=== PATIENT | female | born 1990 ===

== ENCOUNTER → 2017-06-28 | Outpatient (CLI) | payer SELFPAY ==
[2017-04-13 17:16] VITALS: BMI 37.3
[~2017-06-28] MED LIST: CEPH250C37 PO; CIPR-214 PO; GUAI600T57 PO; LOR5/325 PO; PREN-127 PO; TAMS0.4C25 PO
--- NOTE | 2017-06-28 10:43 | RADIOLOGY IMAGING REPORT ---
FACILITY: [facility] PATIENT NAME: Sarah Givens : 1990 MR: [id number] V: [id number] EXAM DATE: ORDERING PHYSICIAN: KELLY ALDRICH TECHNOLOGIST: [facility] Patient: Sarah Givens : 1990 Visit/Account:[id number] Date of Sevice: 06/28/2017 KIDNEYS EXAMINATION: Renal ultrasound. History: History of kidney stones, 4.5 months COMPARISON STUDIES: March 02, 2017 FINDINGS: Kidneys: Right kidney- 14.4 x 6.7 x 8 cm Left kidney- 14.4 x 5.1 x 7 cm. There is a left ureteral stent. This is not ideally seen. There ar e echogenic foci within left renal collecting system with acoustic shadowing which may represent calc ramin Uniform and symmetric blood flow in each kidney by Doppler ultrasound. Hydronephrosis: Mild hydronephrosis on the left Bladder: Prevoid volume 57 mL. Post for residual 13 mL.. Ureteral jets were not identified There is a 1.8 cm well-circumscribed hypoechoic nodule in the liver adjacent to the right kidney Abdominal aorta and IVC: Aorta and IVC are patent by Doppler ultrasound. IMPRESSION: There is a mild left hydronephrosis There appears to be a left ureteral stent in place Shadowing foci within the left renal collecting system may represent calculi There is a 1.8 cm well-circumscribed hypoechoic nodule within the liver adjacent to the right kidney. This is nonspecific in nature with differential diagnosis including area of focal fatty sparing or solid mass. Report Dictated By: Stormy Faria MD at 06/28/2017 10:30 AM Report E-Signed By: Stormy Faria MD at 06/28/2017 10:39 AM WSN:[email or web address]
== END ==
LOC: US 01:42
PROVIDERS: ATTEND Urology
DX: N13.30 Unspecified hydronephrosis (principal); R93.2 Abnormal findings on diagnostic imaging of liver and biliary tract; Z96.0 Presence of urogenital implants; N20.0 Calculus of kidney; Z3A.18 18 weeks gestation of pregnancy
CPT/HCPCS: 76705

== ENCOUNTER 2017-07-14 01:35 | Observation (INO) | payer MEDICAID ==
--- NOTE | 2017-07-13 15:27 | HISTORY AND PHYSICAL ---
DATE OF ADMISSION: July 14, 2017 CHIEF COMPLAINT Kidney stone with indwelling left ureteral stent. HISTORY OF PRESENT ILLNESS Patient is a 26-year-old white female who is currently approximately 22 weeks gestational status who was taken to the operating room originally by Dr. Austin on April 13, 2017 for a left distal ureteral stone. A CT scan performed revealed this to be a 1 cm stone just above the left UVJ. She was also noted to have a 2 mm left lower pole stone. She underwent placement of a 6 Sami x 28 cm Percuflex stent at that time. The patient subsequently presented to myself at the urology clinic on June 07, 2017. At that time, she was having significant left flank and pelvic discomfort and wanted the stent removed. I reviewed her films, and had an extensive discussion with the patient concerning this large stone and the fact that she had another stone in the lower pole of the kidney. Given the fact that she was currently , a stone of this size may require anesthesia time to render her stone free, and she would likely need a stent following this extensive ureteroscopic stone manipulation. The patient returned to the clinic approximately two weeks later with a renal ultrasound, which did reveal some mild left hydronephrosis. The films were shown to the patient and discussed in detail. Given the fact that the stent has been in there approximately three months, there is a significant risk of encrustation with malfunction of this stent, and I have recommended she undergo stent exchange. The option of simultaneously doing ureteroscopy with stone fragmentation was also discussed, but given its large size, may preclude a rapid intraoperative treatment, prolonging anesthesia time with possible increased risk to the baby. Other options of a percutaneous nephrostomy tube were also discussed, but this can occlude as well, secondary to encrustations and would need to be likely changed, in addition to the normal ureteroscopic complications of stone treatment. The fact that she was also presented a unique risk, and these were extensively discussed as well, including labor, injury to and loss of fetus. I have spoken to Dr. Tyler of , who has seen the patient in the past, and recommends we keep the patient for observation post procedure for several hours to overnight. The patient has had kidney stones on and off for several years, with her first one dating back to 2012. This past fall, she began to experience intermittent left flank pain, and in January she had a sonogram which revealed mild right hydroureteronephrosis, however, no stone was seen on the ultrasound or KUB. A followup sonogram one month later showed no significant improvement in the left hydronephrosis. Again, the stone was not visualized. PAST MEDICAL HISTORY * Chronic back pain. * Kidney stones. * Bipolar depression. * Irritable bowel syndrome. * Chronic headaches. PAST SURGICAL HISTORY * Tonsillectomy. * Left breast abscess. * C section x 3. CURRENT MEDICATIONS * Tylenol. * medicines. ALLERGIES KEFLEX. FAMILY HISTORY Noncontributory. REVIEW OF SYSTEMS Patient denies shortness of breath, productive cough, fever, chills, gross hematuria, bleeding disorder or change in bowel habits. PHYSICAL EXAMINATION GENERAL: Patient is a well-developed, well-nourished white female in no acute distress. HEENT: Normocephalic, traumatic. CHEST: Clear to auscultation bilaterally. CARDIOVASCULAR EXAM: Regular rate and rhythm. ABDOMINAL EXAM: Soft, gravid female, nontender. EXTREMITY EXAM: Without clubbing, cyanosis or edema.. NEUROLOGICAL EXAM: Nonfocal. IMPRESSION A 26-year-old white female who is 22 weeks OB with a left ureteral stent in place for the past three months for a 1 cm distal left ureteral calculus. PLAN We will perform anesthetic cystoscopy with stent exchange and possible ureteroscopy and stone manipulation as indicated. SHELLEY
[~2017-07-14] VITALS: Ht 167.6 cm; Wt 109.8 kg
[~2017-07-14 01:35] MED LIST changes: +ACET-1966 PO
[2017-07-14] MEDS ORDERED: IOPAMIDOL-200 50 ML VIAL IS ONE (07:28)
[2017-07-14] MEDS ORDERED: MIDAZOLAM 2 MG/2 ML VIAL IVP PRN (08:00)
[2017-07-14] MEDS ORDERED: NORMOSOL R SOLN(*) 1000 ML BAG 1,000 ML IV PRN (08:00)
[2017-07-14] MEDS ORDERED: cefTAZidime 1 GM VIAL IVP ONE (08:00)
[2017-07-14] MEDS ORDERED: LIDOCAINE/SOD BICARB 8.4% SYR ID ONE (08:00)
[2017-07-14] MEDS ORDERED: FAMOTIDINE 20 MG TAB PO ONE (08:00)
[2017-07-14 08:15] VITALS: BP 139/79
[2017-07-14] MEDS ORDERED: ceFAZolin(*) 2GM/D5W 50ML 50 ML IVPB ONE (08:43)
[2017-07-14] MEDS ORDERED: NS 0.9% 3000 ML IRRIGATION BAG IR ONE (08:57)
[2017-07-14] MEDS ORDERED: fentaNYL CITR 100 MCG/2 ML AMP ONE (09:24)
[2017-07-14] MEDS: APAP/HYDROCODONE 325/5 TAB PO PRN ×2 (10:26→14:35)
--- NOTE | 2017-07-14 10:26 | RADIOLOGY IMAGING REPORT ---
FACILITY: [facility] PATIENT NAME: Sarah Givens : 1990 MR: [id number] V: [id number] EXAM DATE: ORDERING PHYSICIAN: KELLY ARANDA TECHNOLOGIST: Location: [facility] [place] Patient: Sarah Givens : 1990 Visit/Account:[id number] Date of Sevice: 07/14/2017 OR fluoroscopy films: Abdomen: History: Left ureteral stent, renal calculi. Comparison: 04/13/2017 Findings: Fluoroscopy and imaging was provided for Dr. Aranda. 0.7 minutes of fluoroscopy time was u tilized. 5 images of the left upper quadrant are archived to PACS which demonstrate left nephrourete ral stent placement. IMPRESSION: Fluoroscopy and imaging provided for Dr. Aranda please see his report for details. Report Dictated By: Agnes Ba MD at 07/14/2017 10:19 AM Report E-Signed By: Agnes Ba MD at 07/14/2017 10:22 AM WSN:[email or web address]
[2017-07-14 10:35] VITALS: BP 119/57; Ht 167.6 cm; Wt 109.8 kg
[2017-07-14] MEDS ORDERED: KETOROLAC 15 MG/ML VIAL IVP ONE (11:15)
--- NOTE | 2017-07-14 15:58 | OPERATIVE REPORT 1 ---
EVENT DATE: July 14, 2017 SURGEON: Ricardo Aranda MD ANESTHESIOLOGIST: Baldo Mujica MD ANESTHESIA: Spinal anesthetic. PREOPERATIVE DIAGNOSIS Left distal ureteral calculus with indwelling left ureteral stent. POSTOPERATIVE DIAGNOSES 1. Left distal ureteral calculus with indwelling left ureteral stent. 2. Left stent encrustation. PROCEDURES PERFORMED 1. Cystoscopy. 2. Left attempted double-J stent removal. 3. Placement of left double-J ureteral stent alongside first stent. ESTIMATED BLOOD LOSS Minimal. INTRAVENOUS FLUIDS Crystalloid. DRAINS A 6-Mosotho x 26 cm Percuflex-Plus stent alongside prior 6 x 28 Percuflex stent on left side. PATHOLOGY None. COMPLICATIONS None. CONDITION The patient was taken to the recovery room in stable condition. STATEMENT OF MEDICAL NECESSITY The patient is a 26-year-old female who is an approximately 22 weeks OB. She originally had a stent placed on April 13, 2017, for a 1 cm left distal ureteral stone. She is now being brought to the operating room for planned stent exchange and/or ureteroscopy. DESCRIPTION OF PROCEDURE PERFORMED After spinal anesthetic was obtained, the patient was placed supine on the operating room table. A small roll was placed on her right side. A lead shield was placed on top of the fetus from the pubic symphysis up to approximately 5 cm above the umbilicus. She was placed in the dorsal lithotomy position and prepped and draped sterilely. Anesthetic cystoscopy was performed. The left ureteral stent was seen emanating from the left ureteral orifice. There was some encrustation on the distal end of the stent which was light cameron in color and irregular surface. At this point, I was concerned of a significant encrustation up along the intraureteral portion of the stent and, therefore, opted to place a guidewire next to the stent up to the renal pelvis. Therefore, a 6-Mosotho access catheter was advanced into the distal ureter next to the stent for approximately 1 cm where resistance was encountered. A Glidewire was then advanced in the lumen of the access catheter and advanced with moderate resistance up the ureter spot. One spot fluoroscopic image was obtained which showed the wire up in the upper pole calyx of the kidney. At this point, the access catheter was advanced up over the wire with a moderate to significant amount of resistance along the course of the advancement. This was done very slowly and deliberately over several minutes. After this was in place, I placed the rigid grasping forceps in the sheath and grasped the distal end of the stent. I brought the end out of the meatus; however, with moderate pressure, it would not easily be removed. The patient was also experiencing some left flank pain with that manipulation. At this point, I thought it would be best just to place another ureteral stent alongside the first stent to get some more passive ureteral dilation and then return in 10 to 14 days for stent removal and ureteroscopy at that time versus primary ureteroscopy at this point which I felt would be a prolonged procedure as she was having significant discomfort up in her kidney with her current spinal level, so it was more than likely she would progress to a general anesthetic if ureteroscopy was performed to have adequate anesthetic control of her pain. Therefore, at this point, an indwelling double-J was advanced back through the urethra into the bladder. The access catheter was backloaded into the cystoscope. The Glidewire was removed, and a Super Stiff wire was placed inside the lumen. The access catheter was removed, and then the Super Stiff wire was used to advance a 6- Mosotho x 26 cm Percuflex-Plus stent. Spot fluoroscopic imaging after placement showed good coiling in the renal pelvis, and she also had good coiling in the bladder by direct vision. Her other stent had been advanced out approximately 3 cm, and it was curled across the bladder. The patient's bladder was drained through the cystoscopic sheath. She was then transferred to the recovery area where she will be admitted to the OB service for observation. PLAN We will plan to have her return to the operating room in 10 days to two weeks for attempted stent removal and exchange and possible ureteroscopy at that time. rick MTDD
== END 2017-07-14 14:28 | disposition home or self-care (01) ==
LOC: OR 01:35 → OB 10:35
PROVIDERS: ADMIT Urology; ATTEND Urology
DX: N20.1 Calculus of ureter (principal)
CPT/HCPCS: 52332; 76000; 81001; 87088; C2617; G0378; J1885; J3010; J0690; Q9966

== ENCOUNTER 2017-07-25 00:13 | Observation (INO) | payer MEDICAID ==
[2017-07-14 10:35] VITALS: Ht 167.6 cm; Wt 113.9 kg
[2017-07-22 11:10] LABS: PLATELET COUNT, AUTOMATED 279 K/uL (150-450)
--- NOTE | 2017-07-22 16:35 | HISTORY AND PHYSICAL ---
DATE OF ADMISSION: July 25, 2017 CHIEF COMPLAINT Kidney stone with encrusted ureteral stent. HISTORY OF PRESENT ILLNESS The patient is a 26-year-old white female who is approximately 27 weeks gestational status who was originally found to have a 1 cm left distal ureteral calculus and underwent stent placement by Dr. Austin on April 13. She was subsequently lost to followup, but presented to the Urology Clinic for evaluation. An ultrasound performed showed continued mild left hydronephrosis which was the reason for stent obstruction. She was taken to the operating room on 14 of July, at which time she was found to have an encrusted left ureteral stent. I was unable to remove the stent at that time secondary to the amount of encrustation. I was eventually able to place a second ureteral stent alongside her first stent using a 6-Nauruan x 26 cm Percuflex Plus stent. She is now being brought to the operating room for planned stent removal and exchange with a possible ureteroscopy. The above findings were discussed extensively with Sarah with the overall treatment plan explained. She was told she has a significantly increased risk of ureteral injury with her current condition and likely has a significant amount of stone burden along the ureter secondary to this encrustation in addition to her large distal ureteral calculi. She has been informed the primary objective is to provide drainage of her left system. However, in keeping a ureteral stent in place, she will likely continue to form encrustation along these given her significant stone history and current status. The other option of a percutaneous nephrostomy tube was also discussed, but she would likely need this exchange before the end of her secondary to likely encrustation as well. The encrustation of her stent would mandate a significant operative time to render her stone-free with ureteroscopic treatment as well as having an integrative approach through a percutaneous nephrostomy tube. She voiced an understanding of the current situation with increased risk to her renal system with possible perforation and even rare avulsion of her ureter. She understands the need for likely having several procedures in the near future, and this also increases a risk for injury from operative exposure to anesthetic, possible radiation, and ureteral manipulation with premature labor. I have spoken to Dr. Burnham of the OB service, and he desires to have the patient admitted postoperatively for monitoring. PAST MEDICAL HISTORY 1. Chronic back pain. 2. Kidney stones. 3. Bipolar depression. 4. Irritable bowel syndrome. 5. Chronic headaches. PAST SURGICAL HISTORY 1. Tonsillectomy. 2. Breast abscess I and D. 3. times three. 4. Kidney stones as per HPI. CURRENT MEDICINES 1. Tylenol. 2. medicines. ALLERGIES KEFLEX. FAMILY HISTORY Noncontributory. REVIEW OF SYSTEMS The patient denies shortness of breath, nausea, vomiting, fever, chills, gross hematuria, vaginal discharge, or diffuse abdominal pain. PHYSICAL EXAMINATION GENERAL: The patient is a well-developed, well-nourished, white female in no acute distress. HEENT: Normocephalic, atraumatic. CHEST: Clear to auscultation bilaterally. CARDIOVASCULAR: Regular rate and rhythm. ABDOMEN: Soft, nontender. Gravid female. EXTREMITIES: Without clubbing, cyanosis, or edema. NEUROLOGIC: Nonfocal. IMPRESSION A 26-year-old white female who is currently 27 weeks with a 1 cm distal left ureteral stone, now with encrusted left ureteral stent. She has recently had a second stent placed alongside the first. PLAN We will perform anesthetic cystoscopy with attempted stent removal and replacement with possible ureteroscopy as indicated. SHELLEY
[2017-07-25] VITALS (7 sets, daily range): BP systolic 106–126; BP diastolic 62–78
[~2017-07-25] VITALS: Ht 167.6 cm; Wt 113.9 kg
[2017-07-25] MEDS ORDERED: IOPAMIDOL-200 50 ML VIAL IS ONE (06:52)
[2017-07-25] MEDS ORDERED: LIDOCAINE/SOD BICARB 8.4% SYR ID ONE (09:20)
[2017-07-25] MEDS ORDERED: MIDAZOLAM 2 MG/2 ML VIAL IVP PRN (09:20)
[2017-07-25] MEDS ORDERED: ceFAZolin(*) 1 GM VIAL 1 GM in NS(*) 0.9% 100 ML ADDVANT BAG 100 ML IVPB ONE (09:20)
[2017-07-25] MEDS ORDERED: NORMOSOL R SOLN(*) 1000 ML BAG 1,000 ML IV PRN (09:20)
[2017-07-25] MEDS ORDERED: FAMOTIDINE 20 MG TAB PO ONE (09:20)
[2017-07-25] MEDS ORDERED: fentaNYL CITR 100 MCG/2 ML AMP ONE ×2 (10:02→11:38)
[2017-07-25] MEDS ORDERED: LIDOCAINE 2% IV 100 MG/5ML SYR ONE (10:08)
[2017-07-25] MEDS ORDERED: PROPOFOL EMUL(*) 10MG/ML 20 ML 20 ML ONE (10:08)
[2017-07-25] MEDS ORDERED: ONDANSETRON 4 MG/2 ML VIAL ONE (10:25)
[2017-07-25] MEDS ORDERED: DEXAMETHASONE SOD 4 MG/ML VIAL ONE (10:25)
[2017-07-25] MEDS ORDERED: SUCCINYLCHOL CHL 200MG/10ML VL ONE (10:30)
[2017-07-25] MEDS ORDERED: KETOROLAC 15 MG/ML VIAL IVP ONE (13:05)
[2017-07-25] MEDS ORDERED: APAP/HYDROCODONE 325/5 TAB PO PRN (13:05)
--- NOTE | 2017-07-25 17:39 | RADIOLOGY IMAGING REPORT ---
FACILITY: [facility] [place] PATIENT NAME: Sarah Givens : 1990 MR: [id number] V: [id number] EXAM DATE: ORDERING PHYSICIAN: KELLY ALDRICH TECHNOLOGIST: Location: [facility] Patient: Sarah Givens : 1990 Visit/Account:[id number] Date of Sevice: 07/25/2017 Exam type: RETROGRADE PYELOGRAM History: History of kidney stones, left-sided stent removal and replacement Comparison: July 14, 2017. Findings: 15 intraoperative C-arm spot views centered over the left upper quadrant of abdomen demonstrate excha nge of a left ureteral stent. A lead shield overlies most of the abdomen. The total fluoroscopy remi e was 15 seconds. The fluoroscopy dose was 15.28 mGray IMPRESSION: 1. As above Report Dictated By: Stormy Faria MD at 07/25/2017 5:33 PM Report E-Signed By: Stormy Faria MD at 07/25/2017 5:35 PM WSN:[email or web address]
--- NOTE | 2017-07-26 16:08 | OPERATIVE REPORT 1 ---
EVENT DATE: July 25, 2017 SURGEON: Ricardo Aranda MD ANESTHESIOLOGIST: Andrew Kline MD ANESTHESIA: General. PREOPERATIVE DIAGNOSES 1. Left distal ureteral calculus. 2. Encrusted left ureteral stent. 3. Second left ureteral stent. POSTOPERATIVE DIAGNOSES 1. Left distal ureteral calculus. 2. Encrusted left ureteral stent. 3. Second left ureteral stent. PROCEDURES PERFORMED 1. Cystoscopy. 2. Left double-J stent removal. 3. Attempted removal of left encrusted double-J ureteral stent. 4. Crushing fragmentation of stones on distal encrusted stent in bladder with Ellik evacuation of stone fragments from bladder. 5. Replacement of second double-J ureteral stent. ESTIMATED BLOOD LOSS Minimal. INTRAVENOUS FLUIDS Crystalloids. DRAINS 26 cm x 6-Saudi Arabian Percuflex Plus ureteral stent on left alongside first encrusted 6-Saudi Arabian x 28 cm ureteral stent. PATHOLOGY Stone encrustations sent for analysis. COMPLICATIONS None. CONDITION The patient was taken to the recovery room awake and in stable condition. STATEMENT OF MEDICAL NECESSITY The patient is a 26-year-old white female who is now at 27 weeks' gestation. She originally was noted to have a 1 cm left distal ureteral calculus and subcutaneously underwent placement of a 6-Saudi Arabian x 28 cm Percuflex Plus stent by Dr. Austin on May 14. The patient was subsequently lost to followup. She presented to the Urology Clinic with flank pain. Ultrasound was performed which showed moderate hydronephrosis. She was subsequently taken to the operating room on July 14, at which time she was found to have a densely encrusted ureteral stent. I was unable to successfully remove this stent completely. I was able to extract approximately one-third of it down into the bladder. At this point, I placed a second stent alongside the first one using a 6-Saudi Arabian x 26 cm Percuflex stent. Since that time, she has been basically asymptomatic except for some mild stent discomfort. These findings were discussed with the patient in great detail. She continued to have her large distal ureteral calculi in place in addition to now having several encrustation stones still on the stent and likely in the ureter next to the stent from prior manipulation. Treatment options of percutaneous nephrostomy tube placement with every four- to six-week changes until she delivers were discussed versus attempt to change her stents from below with also a possible ureteroscopy. Given her large stone burden, it was discussed that she would more than likely need a prolonged operative length procedure to render her stone-free at this point. The fact that she is complicates significant prolonged intervention at this point. She is in the late second trimester when this could possibly be attempted. The patient is now being brought to the operating room for cystoscopy with evaluation of the stent which was recently placed for encrustation with attempted removal of her prior stent and possible ureteroscopy as indicated. DESCRIPTION OF PROCEDURE PERFORMED The patient was brought to the operating room, and after general anesthetic was attained, a radiology shield was placed on the lower pelvis. Anesthetic cystoscopy was performed with the 21-Saudi Arabian sheath and 30-degree lens. Upon entering the bladder, both stents were seen emanating from the left ureteral orifice. The prior encrusted stent was approximately 6 to 8 cm out from the ureteral orifice where its distal end was curled on the opposite side of the bladder. The newer stent was in good position and did not appear to have any significant encrustation. At this point, the distal end of the newer stent was grasped and brought out through the meatus, and a 0.035 Super Stiff wire was advanced in the lumen of the stent where it was guided up to the renal pelvis which was confirmed by spot fluoroscopic imaging. Following this, the 6-Saudi Arabian x 26 cm Percuflex stent was removed. The Super Stiff wire was secured to the drapes. At this point, the shield was moved cephalad, and another spot image was obtained. This time, the mid ureter could be seen, and the encrusted stent could be visualized in approximately the mid ureter with the curl still in a semicircular position. Gentle traction was used on the stent in the bladder with the grasping forceps; however, no significant movement could be detected inside the bladder. At this point, a 6-Saudi Arabian access catheter was advanced next to the wire and encrusted stent; however, it appeared to encounter the large stone in the distal ureter and could not be advanced further after several minutes of manipulation. Dilute lubricating jelly was injected into the lumen of the access catheter, and manipulation continued; however, I was unsuccessful in advancing the access catheter past the distal stone. Therefore , at this point, the Super Stiff wire was backloaded into the cystoscope, and then this was used to place a new 6-Saudi Arabian x 26 cm Percuflex Plus stent. The wire was removed. She was noted to have good curling in the renal pelvis by spot fluoroscopic imaging and good curling in the bladder by direct vision. At this point, the prior encrusted stent was inspected. There was a significant amount on the very distal portion. The grasping forceps were used to crush and remove this stone encrustation along the portion of the stent that was in the bladder. An Ellik evacuator was then used to remove the encrustation and stone fragments from the bladder. The patient's bladder was then drained through the cystoscopic sheath. She was awakened in the operating room and taken to the recovery area in stable condition. PLAN The plan is to admit the patient to the OB service under the direction of Dr. Burnham for monitoring. We will see her in the Urology Clinic in one to two days to discuss further treatment and followup. SHELLEY
== END 2017-07-25 15:41 | disposition home or self-care (01) ==
LOC: OR 00:13 → OB 12:00
PROVIDERS: ADMIT Urology; ATTEND Urology
DX: N20.1 Calculus of ureter (principal)
CPT/HCPCS: 36415; 52332; 74420; 81001; 85025; 87088; 88300; C1769; C1894; C2617; G0378; J0330; J0690; J1100; J1885; J2001; J2405; J2704; J3010; J7050; 82310; 82374; 82435; 82565; 82947; 84132; 84295; 84520; Q9966

== ENCOUNTER → 2017-08-02 | Outpatient (CLI) | payer MEDICAID ==
[2017-07-14 10:35] VITALS: BMI 39.1
--- NOTE | 2017-08-02 11:24 | RADIOLOGY IMAGING REPORT ---
FACILITY: [facility] [place] PATIENT NAME: Sarah Givens : 1990 MR: [id number] V: [id number] EXAM DATE: ORDERING PHYSICIAN: KELLY ALDRICH TECHNOLOGIST: [facility] Patient: Sarah Givens : 1990 Visit/Account:[id number] Date of Sevice: 08/02/2017 EXAMINATION: Renal ultrasound 08/02/2017 9:30 AM HISTORY: patient. Left ureteral stone with stent.. COMPARISON STUDIES: 06/28/2017 FINDINGS: Kidneys: Right kidney- 14.1 x 5.1 x 7.0 cm, normal parenchymal thickness and echogenicity. Left kidney- 13.3 x 5.4 x 5.3 cm, normal parenchymal thickness and echogenicity. 1.4 cm cyst in the parapelvic area in the mid kidney. Ureteral stent is not well-defined sonographically. No significa nt hydronephrosis. Uniform and symmetric blood flow in each kidney by Doppler ultrasound. Hydronephrosis: none Bladder: At least one potentially to distal stent tips are identified in the bladder. Abdominal aorta and IVC: Patent by Doppler ultrasound IMPRESSION: 1. Unremarkable ultrasound appearance of the kidneys apart from a small cortical cyst on the left. No hydronephrosis. 2. Proximal stent is not well-defined in the left kidney by ultrasound. There are 1 or 2 stent tips identified in the bladder. Fluoroscopic imaging 07/25/2017 only demonstrates one stent over the kidne y on the left, although the bladder was not imaged to limit fluoroscopic exposure of the gestation. Report Dictated By: Montana Herrera MD at 08/02/2017 11:13 AM Report E-Signed By: Montana Herrera MD at 08/02/2017 11:18 AM WSN:[email or web address]
== END ==
LOC: US 01:01
PROVIDERS: ATTEND Urology
DX: N20.2 Calculus of kidney with calculus of ureter (principal); Z87.442 Personal history of urinary calculi
CPT/HCPCS: 76705

== ENCOUNTER → 2017-08-24 | Outpatient (CLI) | payer MEDICAID ==
[2017-07-14 10:35] VITALS: BMI 39.1
[~2017-08-24] MED LIST changes: +ESCI20TA38 PO
--- NOTE | 2017-08-24 17:05 | RADIOLOGY IMAGING REPORT ---
FACILITY: [facility] [place] PATIENT NAME: Sarah Givens : 1990 MR: [id number] V: [id number] EXAM DATE: ORDERING PHYSICIAN: KELLY ALDRICH TECHNOLOGIST: Location: [facility] Patient: Sarah Givens : 1990 Visit/Account:[id number] Date of Sevice: 08/24/2017 KIDNEYS EXAMINATION: Renal ultrasound. History: Left ureteral stones COMPARISON STUDIES: August 02, 2017 FINDINGS: Kidneys: Right kidney- 13.1 x 5.8 x 5.5 cm Left kidney- 14.7 x 6 x 6.1 cm Uniform and symmetric blood flow in each kidney by Doppler ultrasound. Hydronephrosis: There is a moderate hydronephrosis on the left. There is a left ureteral stent in pl rishi Incompletely imaged is a fetus in cephalic presentation Bladder: Empty Abdominal aorta and IVC: Aorta and IVC are patent by Doppler ultrasound. IMPRESSION: Moderate left hydronephrosis Left ureteral stent Incidentally noted is a fetus in cephalic presentation Report Dictated By: Stormy Faria MD at 08/24/2017 3:58 PM Report E-Signed By: Stormy Faria MD at 08/24/2017 4:02 PM WSN:[email or web address]
== END ==
LOC: US 01:05
PROVIDERS: ATTEND Urology
DX: N13.30 Unspecified hydronephrosis (principal); Z96.0 Presence of urogenital implants; Z3A.00 Weeks of gestation of pregnancy not specified
CPT/HCPCS: 76705

== ENCOUNTER 2017-08-25 01:24 | Observation (INO) | payer MEDICAID ==
--- NOTE | 2017-08-24 18:45 | HISTORY AND PHYSICAL ---
DATE OF ADMISSION: August 25, 2017 CHIEF COMPLAINT Left malfunctioning ureteral stent with encrustation and ureteral and kidney stones. HISTORY OF PRESENT ILLNESS The patient is a 26-year-old white female who at this point is approximately 31 weeks of gestation status. She had been found to have a 1 cm left distal ureteral calculus and underwent stent placement in March by Dr. Austin. She was lost to followup. She was seen in the Urology Clinic where she was having flank pain. Ultrasound revealed hydronephrosis on the left side. She was taken to the operating room on the 14 of July and was found to have an extremely encrusted left stent. I was unable to remove the stent at that time after significant efforts. However, I was able to place a second ureteral stent alongside the first stent using a 6-Iranian x 26 cm Percuflex Plus stent. She was returned to the operating room on the 25 of July. At that time, again, the stent was grasped, but would not be removed. The second stent did have some mild encrustation noted already, and it was moderately difficult to exchange this stent out at that time, but I was eventually able to replace it again with a 6-Iranian x 26 cm Percuflex Plus stent. In followup, these findings were again extensively discussed. She was seen in the office on the 02 of August. At that time, she had no significant pain. A renal ultrasound showed no hydronephrosis at that time. Options were discussed as far as proceeding with intervention with possible ureteroscopy and our timing of ureteral stent exchange versus a percutaneous nephrostomy tube. Given her rapid encrustation of these stents, it was felt that she would need her percutaneous nephrostomy tube changed at least twice before delivery. The plan was to have her return to the clinic in approximately three weeks to check another renal ultrasound and proceed with stent exchange at that time if she developed any symptoms or changes. She was seen in the clinic on the 24 of August. She reported having development of mild flank pain with left lower quadrant discomfort. A renal ultrasound was performed, and at this time, a mild -to-moderate hydronephrosis on the left was noted by my interpretation of these films. They were discussed with the patient. She was informed that likely she has encrustation of this second stent. It is no longer draining properly, and this would need to be removed and replaced. Again, the difficulties of exchanging an encrusted stent were discussed. This becomes more problematic given her late stage of when positioning, and tortuosity of the ureter would likely increase. Likely, she has significant encrustation along her prior stent and probably some mild intraluminal encrustation along the stent which has been in there approximately four weeks. She is now being brought to the operating room for planned cystoscopy, stent removal and replacement with possible ureteroscopy. She also understands the need for percutaneous nephrostomy tube placement if we are unsuccessful and the increased risk for ureteral injury given her current situation. Again, distress and compromise with possible labor were explained. I have discussed the case with Dr. Newman of Obstetrics, who is in approval of the plan and has agreed to monitor her post procedure. PAST MEDICAL HISTORY 1. Chronic back pain. 2. Kidney stones. 3. Bipolar depression. 4. Irritable bowel syndrome. 5. Chronic headaches. PAST SURGICAL HISTORY 1. Tonsillectomy. 2. Breast abscess incision and drainage. 3. times three. 4. Kidney stones as per HPI. CURRENT MEDICATIONS 1. Tylenol. 2. medicines. ALLERGIES KEFLEX. FAMILY HISTORY Noncontributory. REVIEW OF SYSTEMS The patient denies chest pain, shortness of breath, productive cough, fever, chills, gross hematuria, bleeding disorder, or vaginal bleeding and/or discharge. PHYSICAL EXAMINATION GENERAL: The patient is a well-developed, gravid female in no acute distress. HEENT: Normocephalic, atraumatic. CHEST: Clear to auscultation bilaterally. CARDIOVASCULAR: Regular rate and rhythm. ABDOMEN: Soft, nontender. No masses are palpated. GENITOURINARY: Deferred to the OR. EXTREMITIES: Without clubbing, cyanosis, or edema. NEUROLOGIC: Nonfocal. IMPRESSION A 26-year-old white female who is now approximately 31 weeks of gestation with a 1 cm distal left stone with an encrusted ureteral stent, now with a likely malfunctioning second stent alongside the first. PLAN We will perform anesthetic cystoscopy, stent removal, and/or exchange with possible ureteroscopy. The patient understands risks of failure to remove and/ or replace with possible need for percutaneous nephrostomy tube placement. She also has been informed about risk with possible premature labor. She also understands she is at increased risk for ureteral injury and will likely need several procedures post delivery to render her stone-free and remove these encrusted stents. SHELLEY
[~2017-08-25] VITALS: Ht 167.6 cm; Wt 113.4 kg
[2017-08-25] MEDS ORDERED: LIDOCAINE/SOD BICARB 8.4% SYR ID ONE (06:05)
[2017-08-25 08:58] LABS: PLATELET COUNT, AUTOMATED 275 K/uL (150-450)
[2017-08-25] MEDS ORDERED: FAMOTIDINE 20 MG TAB PO ONE (09:30)
[2017-08-25] MEDS ORDERED: NORMOSOL R SOLN(*) 1000 ML BAG 1,000 ML IV PRN (09:30)
[2017-08-25] MEDS ORDERED: ceFAZolin(*) 1 GM VIAL 1 GM in NS(*) 0.9% 100 ML ADDVANT BAG 100 ML IVPB ONE (09:30)
[2017-08-25] MEDS ORDERED: MIDAZOLAM 2 MG/2 ML VIAL IVP PRN (09:30)
[2017-08-25] MEDS ORDERED: fentaNYL CITR 100 MCG/2 ML AMP ONE ×2 (09:37→11:19)
[2017-08-25] MEDS ORDERED: LIDOCAINE 2% IV 100 MG/5ML SYR ONE (09:41)
[2017-08-25] MEDS ORDERED: PROPOFOL EMUL(*) 10MG/ML 20 ML 20 ML ONE (09:42)
[2017-08-25 09:45] VITALS: BP 113/69
[2017-08-25] MEDS ORDERED: DEXAMETHASONE SOD 4 MG/ML VIAL ONE (10:31)
[2017-08-25] MEDS ORDERED: ONDANSETRON 4 MG/2 ML VIAL ONE (10:32)
[2017-08-25] MEDS ORDERED: SUCCINYLCHOL CHL 100MG/5ML SYR IVP ONE (10:45)
[2017-08-25] MEDS ORDERED: NS 0.9% 3000 ML IRRIGATION BAG IR ONE (10:56)
[2017-08-25] MEDS ORDERED: BELLADONNA ALK/OPIUM 60MG SUPP PR ONE (10:58)
--- NOTE | 2017-08-25 14:03 | RADIOLOGY IMAGING REPORT ---
FACILITY: [facility] PATIENT NAME: Sarah Givens : 1990 MR: [id number] V: [id number] EXAM DATE: ORDERING PHYSICIAN: KELLY ALDRICH TECHNOLOGIST: Location: [facility] Patient: Sarah Givens : 1990 Visit/Account:[id number] Date of Sevice: 08/25/2017 Exam type: C-ARM FLUORO 1 HR History: URETERAL STENT EXCHANGE Comparison: July 25, 2017. Findings: 17 intraoperative spot views over the abdomen were submitted demonstrating the placement of a left ur eteral stent. The total fluoroscopy time was 15 seconds. The fluoroscopy dose was 27.870 mGray IMPRESSION: 1. As above Report Dictated By: Stormy Faria MD at 08/25/2017 1:10 PM Report E-Signed By: Stormy Faria MD at 08/25/2017 1:58 PM WSN:[id number]
[2017-08-25 15:49] VITALS: BP 121/59; Ht 167.6 cm; Wt 113.4 kg
--- NOTE | 2017-08-25 17:39 | OPERATIVE REPORT 1 ---
EVENT DATE: August 25, 2017 SURGEON: Ricardo Aranda MD ANESTHESIOLOGIST: Andrew Kline MD ANESTHESIA: General anesthetic. PREOPERATIVE DIAGNOSES 1. Left distal ureteral calculus. 2. Encrusted left ureteral stent. 3. Malfunctioning left ureteral stent with likely encrustation. 4. Kidney stones. POSTOPERATIVE DIAGNOSES 1. Left distal ureteral calculus. 2. Encrusted left ureteral stent. 3. Malfunctioning left ureteral stent with likely encrustation. 4. Kidney stones. PROCEDURES PERFORMED 1. Cystoscopy. 2. Removal of left double-J ureteral stent. 3. Replacement of left double-J ureteral stent. ESTIMATED BLOOD LOSS Minimal. INTRAVENOUS FLUIDS Crystalloid. DRAINS A 6-Swedish x 26 cm Percuflex Plus stent on left alongside encrusted 6-Swedish x 28 cm Percuflex Plus stent. COMPLICATIONS None. CONDITION The patient was taken to the recovery room awake and in stable condition. STATEMENT OF MEDICAL NECESSITY The patient is a 26-year-old white female who originally was diagnosed with a 1 cm left distal stone. She had a ureteral stent placed by Dr. Austin and was lost to followup. When seen in the Urology Clinic, she was having flank pain. At that time, ultrasound revealed hydronephrosis, so she was taken to the operating room and found to have an encrusted left ureteral stent. At that time , I was unable to remove the stent after several attempts and placed an internal stent next to this chronically encrusted stent. Four weeks ago, she was brought back to the operating room for a second attempt to remove the prior stent with a possible ureteroscopy; however, after several minutes of manipulation, it would not be easily removed. Therefore, the 6-Swedish x 26 cm stent was placed alongside this stent. Approximately a week after the procedure , the patient was doing well. An ultrasound performed showed no hydronephrosis. She returned to the clinic yesterday and was experiencing mild left flank pain. Ultrasound revealed hydronephrosis on this side and most consistent with malfunctioning of her new stent with likely early encrustation. She is now being brought to the operating room for planned stent removal and possible ureteroscopy as indicated. Again, we had an extensive discussion where current risks of ureteral injury and failure to remove stent with need for possible percutaneous nephrostomy tube placement were explained. DESCRIPTION OF OPERATION PERFORMED The patient was brought to the operating room. After general anesthetic was attained, she was placed in the dorsal lithotomy position. A radiation shield was placed on her lower abdomen to shield the infant. A small roll was placed under side to roll her slightly to the left. At this point, anesthetic cystoscopy was performed. The stents were seen emanating from the left ureteral orifice. There was a significant amount of surrounding reactive bullous edema. The newer stent was noted to have encrustation on its very distal end. The original stent was also noted to have re-encrusted from the last attempt to remove this. At this point, it was obvious that the internal lumen of the stent had been completely encrusted given its appearance. Therefore, a 6-Swedish opening access catheter was advanced in the distal ureter , and a dilute mixture of lidocaine jelly and contrast was used to inject in a retrograde manner along the ureter. This access catheter was then used to place a 0.035 Glidewire, which was advanced to the renal pelvis with spot fluoroscopic imaging at the kidney. The access catheter was then advanced up over this Glidewire to the renal pelvis. The access catheter was kept in place , and the Glidewire was removed. A Super Stiff wire was then advanced into the lumen of the access catheter, and the access catheter was removed. This Super Stiff wire was secured to the drapes as a safety wire. The newer of the two stents was grasped at its distal end and brought out through the meatus using gentle traction. It was removed intact. There was a mild amount of resistance during the removal, but it did not appear to be significant in severity. After this was removed, the other stent was grasped at the meatus with the rigid grasping forceps. However, after multiple attempts, it would not advance. Therefore, Super Stiff wire was then backloaded into the cystoscope, and then this was used to place a 6-Swedish x 26 cm Percuflex Plus stent. It was advanced over the wire easily up into the renal pelvis. The wire was removed. Spot imaging showed good curling in the renal pelvis, and there was good curling in the bladder by direct vision. The patient's bladder was drained through the cystoscopic sheath. A B and O suppository was given at the conclusion of the case. She was awakened in the operating room and taken to the recovery area in stable condition. PLAN The plan will be to have Dr. Newman of Obstetrics monitor the patient and the fetus for the next several hours, and she will be discharged after she is cleared by his service. We will plan to see her in the Urologic Clinic in approximately two weeks to discuss these results and to follow treatment. She will likely need at least one more stent placement over the next three weeks, and hopefully that would be able to bridge her to her delivery where definitive treatment can be entertained. SHELLEY
== END 2017-08-25 15:08 | disposition home or self-care (01) ==
LOC: OR 01:24 → OB 13:05
PROVIDERS: ADMIT Urology; ATTEND Urology
DX: N20.2 Calculus of kidney with calculus of ureter (principal); T83.018A Breakdown (mechanical) of other urinary catheter, initial encounter
CPT/HCPCS: 36415; 52332; 76000; 81001; 85025; 87088; C1769; C1894; C2617; G0378; J0330; J0690; J1100; J2001; J2405; J2704; J3010; J7050; 82040; 82247; 82310; 82374; 82435; 82565; 82947; 84075; 84132; 84155; 84295; 84450; 84460; 84520

== ENCOUNTER 2017-09-02 12:59 | Observation (INO) | payer MEDICAID ==
[~2017-09-02] VITALS: Ht 167.6 cm; Wt 115.7 kg
[2017-09-02] MEDS ORDERED: APAP/HYDROCODONE 325/7.5 TAB PO ONE (14:05)
--- NOTE | 2017-09-02 14:19 | History & Physical ---
History of Present Illness Age of Patient: 26 : 5 Para or TPAL: 4 Estimated Gestational Age: 32 Chief Complaint Left flank pain History of Present Illness The patient is a 26-year-old white female who at this point is approximately 32 weeks of gestation status. She had been found to have a 1 cm left distal ureteral calculus and underwent stent placement in March by Dr. Austin. She was lost to followup. She was seen in the Urology Clinic where she was having flank pain. Ultrasound revealed hydronephrosis on the left side. She was taken to the operating room by Dr Aranda on the 14 of July and was found to have an extremely encrusted left stent. This was attempted to be removed but was unsuccessful and another stent was placed along side of it. This improved her pain and u/s imaging then showed resolution of the hydronephrosis. It has since returned and Manoj just replaced one stent again last week. Pt reports pain has significantly increased over the last 2-3 days. She has been using Lortab 5/325 to control her pain but this is not sufficient currently. History Allergies: Coded Allergies: lamotrigine (Verified Allergy, Intermediate, RASH/HIVES, 07/22/17) cephalexin (Verified Allergy, Mild, RASH , 07/14/17) Family History: FH: PR (myocardial infarction) MOTHER, FH: bipolar disorder MOTHER, FH: diabetes mellitus FATHER FH: heart disease MOTHER, Kidney stone FATHER Substance abuse MOTHER, Med Rec Home Meds Reported Medications Escitalopram Oxalate (LEXAPRO) 20 Mg Tablet, 10 MG PO QDAY, TAB 08/24/17 Hydrocodone Bit/Acetaminophen (HYDROCODON-ACETAMINOPHEN 5-325) 1 Each Tablet, 1- 2 EACH PO DAILY Y for PAIN, TAB 07/22/17 Acetaminophen (TYLENOL) 325 Mg Tablet, 650 MG PO PRN Y for PAIN, TAB 07/07/17 Vits W-Ca,Fe,Fa(<1MG) ( VITAMINS) 1 Each Tablet, 1 EACH PO DAILY, TAB 04/13/17 Review of Systems All Systems Reviewed/Normal: Yes, Except as Noted Genitourinary: Other (denies bleeding) Exam General Exam General Apperance: Alert/Awake/No Acute Distress Neuro: No Gross deficits Cardiovascular: Regular Rate and Rhythm Respiratory: No Respiratory Distress, Clear to Auscultation Abdomen: Soft, Non-Tender, Non-Distended, Gravid - Non-Tender Psychological: Alert & Oriented X3, Appropriate Mood & Affect Cervical Dialation: 0 Cervical Effacement (%): 0 Cervical Consistency: Firm Cervical Position: Posterior Fetus Heart Tone Variabilty: Moderate FHT Accelerations: 15X15 FHT Category: I Medical Decision Making VTE Prophylasis: Adult Deep Vein Thrombosis/Pulmonary: No Pharmacological Contraindicati: Pt at Low Risk for VTE Mechanical Contraindications: Pt at Low Risk for VTE Assessment and Plan Problems: (1) Previous section (2) Threatened labor, antepartum Assessment & Plan: will check fFN and her cervical exam is reassuring for PTL risk. (3) Kidney stone on left side Status: Acute Assessment & Plan: Will check renal u/s to determine if sudden worsening of her hydro or any other complication. Screen for UTI and pyelo although unlikely. Increase to Lortab 7.5 for pain. SHEILA LEZAMA MD Sep 02, 2017 14:19
[2017-09-02] MEDS ORDERED: HYDR-389 PO (14:21)
[2017-09-02 14:37] VITALS: Ht 167.6 cm; Wt 115.7 kg
[2017-09-02 15:20] LABS: PLATELET COUNT, AUTOMATED 237 K/uL (150-450)
--- NOTE | 2017-09-02 15:40 | RADIOLOGY IMAGING REPORT ---
FACILITY: [facility] [place] PATIENT NAME: Sarah Givens : 1990 MR: [id number] V: [id number] EXAM DATE: ORDERING PHYSICIAN: SHEILA LEZAMA TECHNOLOGIST: [place] [facility] [place] Patient: Sarah Givens : 1990 Visit/Account:[id number] Date of Sevice: 09/02/2017 KIDNEYS EXAMINATION: Renal ultrasound. History: Left back pain since stent placement on 08/25/2017 COMPARISON STUDIES: August 24, 2017 FINDINGS: Kidneys: Right kidney- 14.2 x 4.9 x 5 cm Left kidney- 14.5 x 5.9 x 6.1 cm Uniform and symmetric blood flow in each kidney by Doppler ultrasound. Hydronephrosis: There is a left ureteral stent in place.. There is moderate left hydronephrosis that appears similar to the prior study. Bladder: The bladder was not distended with urine although the distal portion the stent appear to be within the bladder Abdominal aorta and IVC: Aorta and IVC are patent by Doppler ultrasound. IMPRESSION: Left ureteral stent Moderate left hydronephrosis similar to the prior study from August 24, 2017 Report Dictated By: Stormy Faria MD at 09/02/2017 3:34 PM Report E-Signed By: Stormy Faria MD at 09/02/2017 3:36 PM WSN:[id number]
== END 2017-09-02 17:00 | disposition home or self-care (01) ==
LOC: OB 12:59
PROVIDERS: ADMIT Obstetrics & Gynecology; ATTEND Obstetrics & Gynecology
DX: O47.03 False labor before 37 completed weeks of gestation, third trimester (principal); O26.893 Other specified pregnancy related conditions, third trimester; M54.9 Dorsalgia, unspecified
CPT/HCPCS: 36415; 59025; 76705; 81001; 82731; 85025; 87088; G0378; G0379; 82040; 82247; 82310; 82374; 82435; 82565; 82947; 84075; 84132; 84155; 84295; 84450; 84460; 84520

== ENCOUNTER 2017-10-04 05:12 | Inpatient (IN) | payer MEDICAID ==
[2017-10-04] VITALS (22 sets, daily range): BP systolic 94–133; BP diastolic 47–85; Ht 167.6 cm; Wt 117.9 kg
[~2017-10-04] VITALS: Ht 167.6 cm; Wt 117.9 kg
[~2017-10-04 05:12] MED LIST changes: +HYDR-389 PO
[2017-10-04] MEDS ORDERED: ceFAZolin(*) 2GM/D5W 50ML 50 ML IVPB ONE (05:14)
[2017-10-04] MEDS ORDERED: cefOXitin/DEX(*) 2GM/50ML PREM 50 ML IVPB ONE (05:15)
[2017-10-04] MEDS ORDERED: METOCLOPRAMIDE 10 MG/2 ML SDV IVP ONE (05:15)
[2017-10-04] MEDS ORDERED: FAMOTIDINE 20 MG/50 ML PREMIX IVPB ONE (05:15)
[2017-10-04] MEDS ORDERED: CITRIC ACID/SOD CITRATE 30 ML PO ONE (05:15)
[2017-10-04] MEDS ORDERED: LR(*) 1000 ML BAG 2,000 ML ONE (05:22)
[2017-10-04] MEDS: LR(*) 1000 ML BAG 1,000 ML IV SCH ×2 (06:04→20:54)
[2017-10-04 06:09] LABS: PLATELET COUNT, AUTOMATED 241 K/uL (150-450)
[2017-10-04] MEDS ORDERED: ePHEDrine 25 MG/5 ML DISP.SYR IVP ONE (06:25)
[2017-10-04] MEDS ORDERED: MORPHINE PF 5 MG/10 ML AMP ONE (06:25)
[2017-10-04] MEDS ORDERED: fentaNYL CITR 100 MCG/2 ML AMP ONE (06:25)
[2017-10-04] MEDS ORDERED: OXYTOCIN 10 UNIT/ML SDV ONE (06:25)
[2017-10-04] MEDS ORDERED: NS 0.9% 20 ML SDV 20 ML ONE (06:25)
[2017-10-04] MEDS ORDERED: ONDANSETRON 4 MG/2 ML VIAL IVP ONE (06:25)
[2017-10-04] MEDS ORDERED: NEXT CASE 1 EA MISC IV ONE ×2 (06:29→06:48)
[2017-10-04] MEDS ORDERED: KETOROLAC 30 MG/ML VIAL ONE (06:50)
--- NOTE | 2017-10-04 07:02 | History & Physical ---
History of Present Illness Age of Patient: 27 : 5 Para or TPAL: 4 EDC per U/S: October 26, 2017 Estimated Gestational Age: 37.0 Chief Complaint Repeat History of Present Illness Pt presenting for scheduled repeat for medical reasons. She is 37.0 weeks today and has a history of problematic nephrolithiasis dating back to first trimester requiring stent placement. This stent has been changed, attempted change, crusted and recurrent pain requiring narcotic medication. She is currently managed by Dr. Aranda who has replaced a stent over the prior stent and has been looking at needing to do a percutaneous stent placement. Discussion with OBX developed plan for delivery at 37 weeks with steroids having been given 09/19/17 and 09/20/17. GBS negative. Past Medical, Surgical, Family and Obstetric Histories reviewed. Please see ACOG chart. History Allergies: Coded Allergies: lamotrigine (Verified Allergy, Intermediate, RASH/HIVES, 07/22/17) cephalexin (Verified Allergy, Mild, RASH , 07/14/17) Family History: FH: HI (myocardial infarction) MOTHER, FH: bipolar disorder MOTHER, FH: diabetes mellitus FATHER FH: heart disease MOTHER, Kidney stone FATHER Substance abuse MOTHER, Med Rec Home Meds Active Scripts Acetaminophen/Hydrocodone (HYDROCODON-ACETAMINOPH 7.5-325) 1 Each Ea, 1 EACH PO Q6H Y for PAIN, #30 EA 0 Refills Prov:SHEILA LEZAMA MD 09/02/17 Reported Medications Escitalopram Oxalate (LEXAPRO) 20 Mg Tablet, 10 MG PO QDAY, TAB 08/24/17 Acetaminophen (TYLENOL) 325 Mg Tablet, 650 MG PO PRN Y for PAIN, TAB 07/07/17 Vits W-Ca,Fe,Fa(<1MG) ( VITAMINS) 1 Each Tablet, 1 EACH PO DAILY, TAB 04/13/17 Review of Systems All Systems Reviewed/Normal: Yes, Except as Noted Other as per HPI Exam General Exam General Apperance: Alert/Awake/No Acute Distress Neuro: No Gross deficits Cardiovascular: Regular Rate and Rhythm Respiratory: No Respiratory Distress, Clear to Auscultation Abdomen: Soft, Non-Tender, Non-Distended, Gravid - Tender Integumentary: Skin Intact without Lesions or Rash Psychological: Alert & Oriented X3, Appropriate Mood & Affect Fetus Feeling Movement?: Yes Heart Tone Variabilty: Moderate FHT Accelerations: 15X15 FHT Category: I Medical Decision Making Data Points Result Diagram: 10/04/17 0553 VTE Prophylasis: Adult Deep Vein Thrombosis/Pulmonary: No Pharmacological Contraindicati: Pt at Low Risk for VTE Mechanical Contraindications: Pt at Low Risk for VTE 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 Risks of scarring, complications reviewed. Will consult Manoj. SHEILA LEZAMA MD Oct 04, 2017 07:02
[2017-10-04] MEDS ORDERED: OXYTOCIN 30 UNIT/D5LR 500 ML 500 ML IV PRN (08:40)
[2017-10-04] MEDS ORDERED: ZOLPIDEM TARTRATE 5 MG TAB PO PRN (08:40)
[2017-10-04] MEDS ORDERED: ACETAMINOPHEN 325 MG TAB PO PRN (08:40)
[2017-10-04] MEDS ORDERED: LANOLIN OINT 7 GM TUBE TP PRN (08:40)
[2017-10-04] MEDS ORDERED: SIMETHICONE 80 MG CHEW CHEW PRN (08:40)
[2017-10-04] MEDS ORDERED: PROMETHAZINE 25 MG/ML 1 ML AMP IVP PRN (08:40)
[2017-10-04] MEDS ORDERED: ONDANSETRON 4 MG/2 ML VIAL IVP PRN (08:40)
--- NOTE | 2017-10-04 08:51 | Post Operative Note ---
Operative Note - [employer] Operative Day Date: Oct 04, 2017 Time: 08:42 Physicians Surgeon: Bradley Photocopying Machine Operator: Shlomo Anesthesia: Spinal Diagnosis Pre-Op Diagnosis: Previous pyelectasis 37 week Post-Op Diagnosis: same pelvic adhesions Procedure Findings: dense pelvic adhesions to anterior uterus and abdominal wall Procedure(s): RLTCS Adhesiolysis Specimen Removed:(Maybe N/A): dict #[id number] Complications: none Fluids Fluids: 1000 ml Estimated Blood Loss: 500 ml Dictated Date OP Note Dictated: Oct 04, 2017 Time OP Note Dictated: 08:44 Copies to: SHEILA LEZAMA MD, TRAVIS MD Oct 04, 2017 08:51
--- NOTE | 2017-10-04 08:59 | Anesthesia OB Pre-Anes Eval ---
History of Present Illness Anesthesia Start Date: Oct 04, 2017 Anesthesia Start Time: 06:45 OB Anesthesia Diagnosis: repeat c/section Current Complication: obesity EDC: October 25, 2017 : 5 Para: 4 Vital Signs: Vital Signs 10/04/17 06:50 Temp 98.1 Pulse 79 Resp 14 B/P (MAP) 133/75 (94) Pulse Ox 93 O2 Delivery Room Air Pain Ratin Result Diagram: 10/04/17 0553 Height (Inches): 66.00 Weight (Pounds): 260 BMI Calculated: 41.96 Past Medical History Medical History: obesity, other (smoker 2p/d) Surgical History: other (stents for stones) Previous Anesthesia: spinal Attended Childbirth Classes?: No Hx Anesthesia Reactions: No Hx Family Anesthesia Reaction: No Home Meds Active Scripts Acetaminophen/Hydrocodone (HYDROCODON-ACETAMINOPH 7.5-325) 1 Each Ea, 1 EACH PO Q6H Y for PAIN, #30 EA 0 Refills Prov:SHEILA LEZAMA MD 09/02/17 Reported Medications Acetaminophen (TYLENOL) 325 Mg Tablet, 650 MG PO PRN Y for PAIN, TAB 07/07/17 Vits W-Ca,Fe,Fa(<1MG) ( VITAMINS) 1 Each Tablet, 1 EACH PO DAILY, TAB 04/13/17 Discontinued Reported Medications Escitalopram Oxalate (LEXAPRO) 20 Mg Tablet, 10 MG PO QDAY, TAB 08/24/17 Allergies: Coded Allergies: lamotrigine (Verified Allergy, Intermediate, RASH/HIVES, 07/22/17) cephalexin (Verified Allergy, Mild, RASH , 07/14/17) Anesthesia OB ROS Neurological: other (bipolar) ENT: Tongue ring (out) Pulmonary: smoker (pks/day/yrs) (2) Airway Class: lll Cardiovascular ROS: No edema, No arrhythmia, No other GI ROS: NPO Last Solids Date: Oct 03, 2017 Last Solids Time: 23:30 ROS: Other (kidney stones) Endocrine ROS: other (m.obesdity) Musculoskeletal ROS: low back pain ASA Classification: 3 Assessment and Plan Anesthesia Plan: SAB Anesthesia Stop Day: Oct 04, 2017 Anesthesia Stop Time: 08:50 MICHAELLE JONES CRNA Oct 04, 2017 08:59
[2017-10-04] MEDS: DOCUSATE CALCIUM 240 MG CAP PO SCH ×2 (09:00→20:05)
[2017-10-04] MEDS: FAMOTIDINE 20 MG TAB PO SCH ×2 (09:00→20:05)
[2017-10-04] MEDS: KETOROLAC 30 MG/ML VIAL IVP SCH ×2 (14:43→20:04)
[2017-10-04] MEDS: DLR(*) 1000 ML BAG 1,000 ML IV PRN (15:10)
--- NOTE | 2017-10-04 16:48 | OPERATIVE REPORT 1 ---
EVENT DATE: October 04, 2017 SURGEON: Kentrell Huerta MD ANESTHESIA: Spinal, Noemi Wright CRNA GOLF BALL WINDER: Shantanu Keenan MD PREOPERATIVE DIAGNOSES 1. Previous section times three. 2. A 37-week intrauterine . 3. Nephrolithiasis with complicated stent in place times two and crusting and hydronephrosis. 4. Chronic pain secondary to above. 5. Obesity. POSTOPERATIVE DIAGNOSES 1. Previous section times three. 2. A 37-week intrauterine . 3. Nephrolithiasis with complicated stent in place times two and crusting and hydronephrosis. 4. Chronic pain secondary to above. 5. Obesity. 6. Dense pelvic adhesions. PROCEDURES PERFORMED 1. Repeat low transverse section via Pfannenstiel skin incision. 2. Adhesiolysis. ESTIMATED BLOOD LOSS 500 mL FLUIDS Crystalloid 1000 mg IV. URINE OUTPUT 200 mL FINDINGS Male infant, cephalic, left occiput anterior position, Apgars 9 and 9, weight 7 pounds 0.5 ounce. Dense pelvic adhesions of the anterior uterus to the anterior abdominal wall. PROCEDURE IN DETAIL The patient was brought to the operating room with a working IV, and spinal anesthetic was administered. She was placed in the dorsal supine position with a leftward tilt and then prepped and draped in the usual sterile fashion. Using a knife, a Pfannenstiel skin incision was made and carried through to the underlying rectus fascia. This was nicked in the midline and extended laterally. Rectus fascia was dissected off underlying rectus muscles using sharp dissection, and there were dense adhesions here. Careful dissection was required in order to free the anterior abdominal fascia away from the rectus muscles. These were then in the midline and carefully dissected down encountering omentum once we entered the intra-abdominal space. This was adhered to the anterior abdominal wall. We had to carefully separate the rectus muscles and then laterally dissect the omentum away from the anterior abdominal wall using sharp dissection. Once we had gained entry to the uterus, we continued with this dissection, peeling the omentum off of the anterior uterus and dissecting it away from the anterior abdominal wall in order to expose the lower uterine segment. Once this had been obtained, a bladder flap was created, and it was carefully dissected down using sharp dissection. This exposed the lower uterine segment of the uterus. A bladder blade was inserted. The bladder was retracted away. Using a knife, a low transverse incision was made on the uterus and carried through to the intra-amniotic space. There was clear fluid upon amniotomy. It was put on lateral stretch while a hand was inserted. The 's head was elevated to the incision. Fundal pressure was applied. The infant's head delivered atraumatically. Mouth and nose were bulb suctioned. The cord was allowed to stop pulsating. It was then clamped and cut. The was passed to the awaiting resuscitation team. A cord sample was obtained. Placenta delivered manually. Uterus was exteriorized and cleared of clots and debris. The bladder was further taken down off the lower uterine segment of the uterus in order to have an adequate margin to repair the uterus. Once this had been safely done, the uterine repair was performed with a #1 Monocryl in a running locking stitch. A second suture of the same type was used to imbricate the first layer, completing a two-layer closure. We then took time to free up the remaining adhesions to the uterus and omentum and to secure hemostasis on all those points. Uterus was returned to the abdomen. Bilateral pelvic gutters were irrigated until clear of clots and debris. The incision was then inspected in situ, found to be hemostatic. Therefore, the parietal peritoneum was repaired using a 3-0 Vicryl in a running nonlocking stitch. Rectus muscles were reapproximated in the midline with the same stitch. The rectus muscle bellies were inspected, irrigated, blotted, and then cautery was applied on multiple capillary bleeders. Once hemostasis was adequate, the rectus fascia was repaired using an 0 Vicryl in a running nonlocking stitch. Subcuticular space was irrigated until clear of clots and debris, and cautery was applied to capillary bleeders. The space was closed with a 3-0 Vicryl Plus in a running nonlocking stitch. Skin was repaired using a 4-0 Monocryl simple subdermal and covered with Dermabond skin adhesive. She tolerated the procedure well. Sponge, lap, needle, and instrument counts were all correct times three. She was taken to recovery in stable condition. SHELLEY
[2017-10-04 18:18] LABS: PLATELET COUNT, AUTOMATED 227 K/uL (150-450)
[2017-10-05] MEDS: KETOROLAC 30 MG/ML VIAL IVP SCH (02:03)
[2017-10-05 02:11] VITALS: BP 113/62
[2017-10-05] MEDS: DLR(*) 1000 ML BAG 1,000 ML IV PRN ×2 (04:34→10:15)
[2017-10-05 07:20] VITALS: BP 128/75
[2017-10-05 07:29] LABS: PLATELET COUNT, AUTOMATED 204 K/uL (150-450)
--- NOTE | 2017-10-05 08:29 | OB/GYN Progress Note ---
OB Subjective Progress Notes Subjective Pain controlled, Tolerating diet and activity. Baby . Normal lochia. GI: POS Flatus, NEG Nausea, NEG Vomiting Pain: Mild OB Objective Physical Exam Vital Signs Date Time Temp Pulse Resp B/P (MAP) Pulse Ox O2 Delivery O2 Flow Rate FiO2 10/05/17 07:20 98.3 71 20 128/75 (92) 94 Room Air 10/05/17 06:35 1.0 Intake and Output 10/06/17 07:00 Output Total 30 ml Balance -30 ml Output Urine Total 30 ml General Appearance: Alert/Awake/No Acute Distress Neurological: No Gross deficits Cardiovascular: Regular Rate and Rhythm Respiratory: No Respiratory Distress, Clear to Auscultation Abdomen: Fundus Firm Extremities: No Edema Integumentary: Skin Intact without Lesions or Rash Psychological: Alert & Oriented X3, Appropriate Mood & Affect Result Diagram: 10/05/1762310/05/17623 Assessment and Plan Problems: (1) Previous section (2) History of 3 sections (3) care following delivery Assessment & Plan: Pain controlled, Tolerating diet and activity. Baby . Normal lochia. Low urine out put, cbc and bmp stable suspect will start diuresing today BERNICE LENNON MD Oct 05, 2017 08:29
[2017-10-05] MEDS ORDERED: DIPHTH/TETANUS/ACEL. PERTUSSIS IM ONLY ONE (08:40)
[2017-10-05] MEDS ORDERED: INFLUENZA VIRUS VAC 0.5 ML SYR IM ONLY ONE (08:40)
[2017-10-05] MEDS ORDERED: MEASLES,MUMP,RUBELLA VAC 0.5ML SUBQ ONE (08:40)
--- NOTE | 2017-10-05 09:02 | Anesthesia Post Eval Note ---
Anesthesia Post Eval Note Pt able to participate in Eval: Yes Cardiovascular Status: Satisfactory Respiratory Status: Satisfactory Pain Managment: Satisfactory PO Nausea/Vomiting: Satisfactory Temperature Management: Satisfactory Mental Status: Satisfactory, Alert, Oriented X3 Post-Op Hydration Status: Satisfactory, Tolerating PO Well Anesthesia Type: RAMON (valarie farfan) MICHAELLE JONES CRNA Oct 05, 2017 09:02
[2017-10-05] MEDS: DOCUSATE CALCIUM 240 MG CAP PO SCH ×2 (09:27→20:22)
[2017-10-05] MEDS: FAMOTIDINE 20 MG TAB PO SCH ×2 (09:27→20:22)
[2017-10-05] MEDS: IBUPROFEN 800 MG TAB PO SCH ×2 (09:27→17:24)
[2017-10-05 11:05] VITALS: BP 122/71
[2017-10-05] MEDS ORDERED: DLR(*) 1000 ML BAG 1,000 ML IV PRN (11:17)
[2017-10-05 15:00] VITALS: BP 138/84
[2017-10-05 19:33] VITALS: BP 151/81
[2017-10-05 19:35] VITALS: BP 141/80
[2017-10-06] MEDS: IBUPROFEN 800 MG TAB PO SCH ×2 (01:04→08:45)
--- NOTE | 2017-10-06 07:11 | OB/GYN Progress Note ---
OB Subjective Progress Notes Subjective Doing well. Pain controlled and ambulating. Voiding well and bleeding light. Dr Aranda has a plan to do her surgery at 10-14 days out. UO looks good. GI: NEG Nausea OB Objective Physical Exam Vital Signs Date Time Temp Pulse Resp B/P (MAP) Pulse Ox O2 Delivery O2 Flow Rate FiO2 10/05/17 23:10 90 16 90 Room Air 10/05/17 19:35 141/80 (100) 10/05/17 19:33 98.9 10/05/17 06:35 1.0 General Appearance: Alert/Awake/No Acute Distress Neurological: No Gross deficits Cardiovascular: Normal Rhythm & Peripheral Pulses, Regular Rate and Rhythm Respiratory: No Respiratory Distress, Clear to Auscultation Abdomen: Fundus Firm Incision: Clean, Dry, Intact, Dermabond Extremities: No Edema Integumentary: Skin Intact without Lesions or Rash Psychological: Alert & Oriented X3, Appropriate Mood & Affect Result Diagram: 10/05/1724 10/05/1724 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 Baby needs time in nursery. Will discharge to room in. SHEILA LEZAMA MD Oct 06, 2017 07:11
[2017-10-06] MEDS ORDERED: IBUP800T37 PO (07:13)
[2017-10-06] MEDS ORDERED: PER PO (07:13)
--- NOTE | 2017-10-06 07:15 | OB/GYN Discharge Summary ---
Discharge Summary Reason for Hosp/Final Diag: (1) Previous section (2) History of 3 sections (3) care following delivery Hospital Course & Plan: Stable from surgical standpoint. Baby needs time in nursery. Will discharge to room in. Lates Vital Signs Vital Signs Date Time Temp Pulse Resp B/P (MAP) Pulse Ox O2 Delivery O2 Flow Rate FiO2 10/05/17 23:10 90 16 90 Room Air 10/05/17 19:35 141/80 (100) 10/05/17 19:33 98.9 10/05/17 06:35 1.0 Weight (Pounds): 260 Result Diagram: 10/05/1724 10/05/1724 Hematology Test 10/05/17 06:24 Red Blood Count 3.94 M/uL (4.17-5.56) Mean Corpuscular Volume 85.2 fL (80.0-96.0) Mean Corpuscular Hemoglobin 29.1 pg (26.0-33.0) Mean Corpuscular Hemoglobin Concent 34.1 g/dL (32.0-36.0) Red Cell Distribution Width 14.1 % (11.5-14.5) Mean Platelet Volume 10.4 fL (7.2-11.1) Neutrophils (%) (Auto) 67.2 % (39.4-72.5) Lymphocytes (%) (Auto) 19.2 % (17.6-49.6) Monocytes (%) (Auto) 10.9 % (4.1-12.4) Eosinophils (%) (Auto) 2.4 % (0.4-6.7) Basophils (%) (Auto) 0.3 % (0.3-1.4) Nucleated RBC Relative Count (auto) 0.0 /100WBC Neutrophils # (Auto) 8.7 K/uL (2.0-7.4) Lymphocytes # (Auto) 2.5 K/uL (1.3-3.6) Monocytes # (Auto) 1.4 K/uL (0.3-1.0) Eosinophils # (Auto) 0.3 K/uL (0.0-0.5) Basophils # (Auto) 0.0 K/uL (0.0-0.1) Nucleated RBC Absolute Count (auto) 0.00 K/uL Sodium Level 134 mmol/L (137-145) Potassium Level 4.3 mmol/L (3.5-5.0) Chloride Level 106 mmol/L (98-107) Carbon Dioxide Level 21 mmol/L (22-31) Blood Urea Nitrogen 13 mg/dl (7-18) Creatinine 0.70 mg/dl (0.52-1.04) Glomerular Filtration Rate Calc > 60.0 Random Glucose 94 mg/dl (75-110) Calcium Level 8.9 mg/dl (8.4-10.2) Chemistry Test 10/05/17 06:24 White Blood Count 13.0 k/uL (4.5-11.0) Red Blood Count 3.94 M/uL (4.17-5.56) Hemoglobin 11.5 g/dL (12.0-16.0) Hematocrit 33.6 % (34.0-47.0) Mean Corpuscular Volume 85.2 fL (80.0-96.0) Mean Corpuscular Hemoglobin 29.1 pg (26.0-33.0) Mean Corpuscular Hemoglobin Concent 34.1 g/dL (32.0-36.0) Red Cell Distribution Width 14.1 % (11.5-14.5) Platelet Count 204 K/uL (150-450) Mean Platelet Volume 10.4 fL (7.2-11.1) Neutrophils (%) (Auto) 67.2 % (39.4-72.5) Lymphocytes (%) (Auto) 19.2 % (17.6-49.6) Monocytes (%) (Auto) 10.9 % (4.1-12.4) Eosinophils (%) (Auto) 2.4 % (0.4-6.7) Basophils (%) (Auto) 0.3 % (0.3-1.4) Nucleated RBC Relative Count (auto) 0.0 /100WBC Neutrophils # (Auto) 8.7 K/uL (2.0-7.4) Lymphocytes # (Auto) 2.5 K/uL (1.3-3.6) Monocytes # (Auto) 1.4 K/uL (0.3-1.0) Eosinophils # (Auto) 0.3 K/uL (0.0-0.5) Basophils # (Auto) 0.0 K/uL (0.0-0.1) Nucleated RBC Absolute Count (auto) 0.00 K/uL Glomerular Filtration Rate Calc > 60.0 Calcium Level 8.9 mg/dl (8.4-10.2) Condition: Improved Discharge: Home, Self Mcc Meds Active Scripts Oxycodone/Acetaminophen (OXYCODONE/ACETAMINOPHEN 5MG/325 MG) 5 Mg/325 Mg Tab, 1- 2 TAB PO Q4H Y for PAIN for 30 Days, TAB 0 Refills Prov:KENTRELL HUERTA MD 10/06/17 Acetaminophen/Hydrocodone (HYDROCODON-ACETAMINOPH 7.5-325) 1 Each Ea, 1 EACH PO Q6H Y for PAIN, #30 EA 0 Refills Prov:KENTRELL HUERTA MD 09/02/17 Reported Medications Acetaminophen (TYLENOL) 325 Mg Tablet, 650 MG PO PRN Y for PAIN, TAB 07/07/17 Vits W-Ca,Fe,Fa(<1MG) ( VITAMINS) 1 Each Tablet, 1 EACH PO DAILY, TAB 04/13/17 Discontinued Reported Medications Escitalopram Oxalate (LEXAPRO) 20 Mg Tablet, 10 MG PO QDAY, TAB 08/24/17 Follow up Referrals: [facility]DER - In Two Weeks @ [facility] with Kentrell Huerta Md Follow up with: Dr. Huerta [phone] Follow up in: 2 wks PO Discharge Diet: As Tolerates Discharge Activity: As Tolerates, No Heavy Lifting x 6 wks, No Heavy Lifting > 10lb, Pelvic Rest Copies to: KENTRELL HUERTA MD, TRAVIS MD Oct 06, 2017 07:15
[2017-10-06 07:30] VITALS: BP 129/72
[2017-10-06] MEDS: DOCUSATE CALCIUM 240 MG CAP PO SCH (08:45)
[2017-10-06] MEDS: FAMOTIDINE 20 MG TAB PO SCH (08:45)
== END 2017-10-06 09:30 | disposition home or self-care (01) | DRG 765 ==
LOC: OB 05:12
PROVIDERS: ADMIT Obstetrics & Gynecology; ATTEND Obstetrics & Gynecology
PROC: 0DNW0ZZ Release Peritoneum, Open Approach (ICD-10-PCS; 2017-10-04)
PROC: 10D00Z1 Extraction of Products of Conception, Low, Open Approach (ICD-10-PCS; principal; 2017-10-04 07:30)
DX: O34.211 Maternal care for low transverse scar from previous cesarean delivery (principal); Z68.41 Body mass index [BMI] 40.0-44.9, adult; O99.214 Obesity complicating childbirth; O99.89 Other specified diseases and conditions complicating pregnancy, childbirth and the puerperium; O99.334 Smoking (tobacco) complicating childbirth; O99.344 Other mental disorders complicating childbirth; O75.89 Other specified complications of labor and delivery; N20.0 Calculus of kidney; G89.29 Other chronic pain; E66.9 Obesity, unspecified; N73.6 Female pelvic peritoneal adhesions (postinfective); F17.210 Nicotine dependence, cigarettes, uncomplicated; F31.9 Bipolar disorder, unspecified; Z96.0 Presence of urogenital implants; Z37.0 Single live birth; Z3A.37 37 weeks gestation of pregnancy; Z88.8 Allergy status to other drugs, medicaments and biological substances
CPT/HCPCS: 36415; 82310; 82374; 82435; 82565; 82947; 84132; 84295; 84520; 85025; 86850; 86900; 86901; J0694; J1885; J2270; J2405; J2590; J2765; J3010; J3490; J7050; J7120

== ENCOUNTER 2017-10-10 02:05 | Day surgery (SDC) | payer MEDICAID ==
[2017-10-04 06:50] VITALS: Ht 167.6 cm; Wt 113.9 kg
[2017-10-07 14:33] LABS: PLATELET COUNT, AUTOMATED 282 K/uL (150-450)
--- NOTE | 2017-10-07 14:50 | HISTORY AND PHYSICAL ---
DATE OF ADMISSION: October 10, 2017 CHIEF COMPLAINT Kidney stones with indwelling malfunctioning, encrusted ureteral stents. HISTORY OF PRESENT ILLNESS Patient is a 27-year-old white female who was originally found to have a 1 cm left distal ureteral calculus and underwent stent placement by Dr. Austin in March. She was lost to urological followup, but eventually presented to Urology Clinic with right flank pain. An ultrasound revealed she had a left hydronephrosis. She was originally taken to the operating room on the 14 of July and found to have an extremely encrusted left ureteral stent, which I was only able to advance down approximately 4 cm into the bladder. At that time , she underwent placement of a second stent alongside the first stent and subsequently had that stent exchanged two more times. The last was on the 25 of August. The patient underwent a delivery on the and is, therefore, now being brought to the operating room for definitive ureteroscopy an attempted removal of encrusted stents. I have had an extensive discussion with both the patient and her concerning her current condition. We will perform at low-dose CT scan preoperatively to evaluate her current stone burden, but we would need to remove her 1 cm distal ureteral stent as well as perform procedures to treat her encrusted stent and remove these. This may involve ureteroscopy and/or extracorporeal shock wave lithotripsy of the stents. She does desire possible future fertility; therefore, this precludes to a distal extracorporeal shock wave lithotripsy. PAST MEDICAL HISTORY * Chronic back pain. * Kidney stones. * Bipolar depression. * Irritable bowel syndrome. * Chronic headaches. PAST SURGICAL HISTORY * Tonsillectomy. * Breast abscess with incision and drainage. * times four. * Kidney stones as per HPI. CURRENT MEDICATIONS * Tylenol. * Multivitamins. ALLERGIES KEFLEX. FAMILY HISTORY Noncontributory. REVIEW OF SYSTEMS The patient denies productive cough, chest pain, fever, chills, gross hematuria , nausea, vomiting, bleeding disorder, or dyspnea on exertion. She does have some intermittent left flank pain with irritative voiding symptoms. PHYSICAL EXAMINATION GENERAL: Patient is a moderately obese white female in no acute distress. HEENT: Normocephalic, atraumatic. CHEST: Clear to auscultation bilaterally. CARDIOVASCULAR: Regular rate and rhythm. ABDOMEN: Soft, nontender. No masses are palpated. She has a well-healing Pfannenstiel incision. EXTREMITIES: Without clubbing, cyanosis, or edema. NEUROLOGIC: Nonfocal. IMPRESSION A 27-year-old white female with history of a 1 cm distal stone with two indwelling ureteral stents with encrustation. PLAN We will perform anesthetic cystoscopy with ureteroscopy, fragmentation removal of ureteral stone, and attempted removal of ureteral stents. She is also being consented to possible extracorporeal shock wave lithotripsy of proximal major ureteral stone and along the stent. Patient understands there is a high likelihood of needing more than one procedure given her current stone burden and also understanding the continued risk of needing a percutaneous nephrostomy tube placement. SHELLEY
[2017-10-10] VITALS (8 sets, daily range): BP systolic 115–131; BP diastolic 68–94
[~2017-10-10] VITALS: Ht 167.6 cm; Wt 113.9 kg
[~2017-10-10 02:05] MED LIST changes: +IBUP800T37 PO; +PER PO
[2017-10-10] MEDS ORDERED: IOPAMIDOL-200 50 ML VIAL IS ONE (07:35)
[2017-10-10] MEDS ORDERED: fentaNYL CITR 100 MCG/2 ML AMP ONE ×5 (07:52→11:08)
[2017-10-10] MEDS ORDERED: LIDOCAINE MPF 1% 5 ML VIAL ONE (07:53)
[2017-10-10] MEDS ORDERED: DEXAMETHASONE SOD PHOS 10MG/ML ONE (07:53)
[2017-10-10] MEDS ORDERED: PROPOFOL EMUL(*) 10MG/ML 20 ML 20 ML ONE (07:53)
[2017-10-10] MEDS ORDERED: ONDANSETRON 4 MG/2 ML VIAL ONE (07:53)
[2017-10-10] MEDS ORDERED: ceFAZolin(*) 1 GM VIAL 1 GM in NS(*) 0.9% 100 ML ADDVANT BAG 100 ML IVPB ONE (08:15)
[2017-10-10] MEDS ORDERED: FAMOTIDINE 20 MG TAB PO ONE (08:15)
[2017-10-10] MEDS ORDERED: ceFAZolin(*) 2GM/D5W 50ML 50 ML IVPB ONE (08:15)
[2017-10-10] MEDS ORDERED: NORMOSOL R SOLN(*) 1000 ML BAG 1,000 ML IV PRN (08:15)
[2017-10-10] MEDS ORDERED: MIDAZOLAM 2 MG/2 ML VIAL IVP PRN (08:15)
[2017-10-10] MEDS ORDERED: LIDOCAINE/SOD BICARB 8.4% SYR ID ONE (08:15)
[2017-10-10] MEDS ORDERED: KETOROLAC 30 MG/ML VIAL ONE (08:28)
[2017-10-10] MEDS ORDERED: GLYCOPYRROLATE 0.2 MG/ML SDV ONE (08:30)
[2017-10-10] MEDS ORDERED: KETAMINE HCL 200 MG/20 ML MDV ONE (08:30)
[2017-10-10] MEDS ORDERED: BELLADONNA ALK/OPIUM 60MG SUPP PR ONE (08:44)
[2017-10-10] MEDS ORDERED: NS 0.9% 3000 ML IRRIGATION BAG IR ONE (08:59)
--- NOTE | 2017-10-10 09:06 | RADIOLOGY IMAGING REPORT ---
FACILITY: [facility] PATIENT NAME: Sarah Givens : 1990 MR: [id number] V: [id number] EXAM DATE: ORDERING PHYSICIAN: KELLY ALDRICH TECHNOLOGIST: Location: [facility] [place] Patient: Sarah Givens : 1990 Visit/Account:[id number] Date of Sevice: 10/10/2017 ABDOMEN PELVIS ESWL CYSTO W/O HISTORY: Magi of kidney stones, preop TECHNIQUE: Axial images acquired through the abdomen/pelvis. Coronal and sagittal reformatting also performed. No IV contrast administered. Dose Lowering Technique One of the following dose optimization techniques was utilized in the performance of this exam: Autom ated exposure control; adjustment of the mA and/or kV according to the patient's size; or use of an i terative reconstruction technique. Specific details can be referenced in the facility's radiology C T exam operational policy. COMPARISON: April 13, 2017 FINDINGS: Visualized lung bases: Mild atelectasis in the lung bases Hepatobiliary: Mild hepatomegaly Spleen: Negative. Adrenals: Negative. Pancreas: Negative. Kidneys ureters and bladder: There are two left ureteral stents. One of the stents is located approx imately an upper pole calyx and one is located at the left renal pelvis. Distal portion of both sten ts are within the bladder. The previously noted 1 cm stone remains at the left UVJ. There is a mode rate left hydronephrosis. There is a 3 mm calculus in the lower pole calyx of the right kidney Genitalia: The uterus is enlarged and heterogeneous. A small bubble of air is also noted within the endometrium. There are infiltrative changes seen in the subcutaneous fat over the anterior pelvic w all and this small elliptical hypodensity within the rectus sheath. These changes are suggestive of a recent section. GI: Negative. Vessels/spaces/nodes: Negative. Bones/soft tissues: Negative. Additional findings: None pertinent. IMPRESSION: There are two left ureteral stents as described. The previously noted 1 cm stone remains at the left UVJ. There is a moderate left hydronephrosis 3 mm nonobstructing calculus lower pole calyx of the right kidney Mild hepatomegaly Mild by basilar atelectasis Uterus is enlarged and heterogeneous with a small bubble of air within the endometrium. Infiltrative changes in the subcutaneous fat of the anterior pelvic wall small elliptical hypodensity within the rectus sheath all suggest recent section Report Dictated By: Stormy Faria MD at 10/10/2017 8:51 AM Report E-Signed By: Stormy Faria MD at 10/10/2017 9:02 AM WSN:[id number]
[2017-10-10] MEDS ORDERED: NS 0.9% 20 ML SDV 20 ML ONE (09:22)
[2017-10-10] MEDS ORDERED: DOCU-416 PO (10:49)
[2017-10-10] MEDS ORDERED: HYDR-4309 PO (10:49)
[2017-10-10] MEDS ORDERED: OXYB10TA21 PO (10:50)
--- NOTE | 2017-10-10 11:30 | RADIOLOGY IMAGING REPORT ---
FACILITY: [facility] PATIENT NAME: Sarah Givens : 1990 MR: [id number] V: [id number] EXAM DATE: ORDERING PHYSICIAN: KELLY ALDRICH TECHNOLOGIST: Location: [facility] [place] Patient: Sarah Givens : 1990 Visit/Account:[id number] Date of Sevice: 10/10/2017 Exam type: RETROGRADE PYELOGRAM History: HEMATURIA Comparison: CT abdomen and pelvis October 10, 2017 Findings: 76 fluoroscopic spot images were submitted for interpretation. The total fluoroscopy time was one mi nute and 10 seconds. The fluoroscopy dose was 87 mGray.. On the initial images the two left uretera l stents are noted in addition to the 1 cm calcification projecting over the left side of the pelvis previously demonstrated within the distal left ureter. Contrast was injected into the left renal col lecting system which appeared moderately dilated. On the final image only a single left ureteral briseyda nt was in place. The distal left ureteral calculus is not seen on the final images IMPRESSION: 1. As above Report Dictated By: Stormy Faria MD at 10/10/2017 11:20 AM Report E-Signed By: Stormy Faria MD at 10/10/2017 11:26 AM WSN:MO
[2017-10-10] MEDS ORDERED: APAP/HYDROCODONE 325/5 TAB ONE (12:05)
--- NOTE | 2017-10-11 12:11 | OPERATIVE REPORT 1 ---
EVENT DATE: October 10, 2017 SURGEON: Ricardo Aranda MD ANESTHESIOLOGIST: Hermilo Pearce MD ANESTHESIA: General. PREOPERATIVE DIAGNOSIS 1. Indwelling left ureteral encrusted malfunctioning stents x 2. 2. Distal left ureteral calculi measuring 1 cm. 3. Right mid pole renal calculus. POSTOPERATIVE DIAGNOSIS 1. Indwelling left ureteral encrusted malfunctioning stents x 2. 2. Distal left ureteral calculi measuring 1 cm. 3. Right mid pole renal calculus. PROCEDURE PERFORMED 1. Cystoscopy. 2. Grasping and removal of more recently placed left double J ureteral stent. 3. Left semirigid ureteroscopy with laser fragmentation of distal 1 cm ureteral stone with grasping and removal of stone fragments. 4. Left semirigid ureteroscopy with laser fragmentation of proximal encrusted ureteral stent curl. 5. Grasping and removal of encrusted ureteral stent #2. 6. Placement of left internal double J ureteral stent. 7. Grasping and removal of stone fragments from bladder. ESTIMATED BLOOD LOSS 5 mL. IV FLUIDS Crystalloids. DRAINS 6 Gibraltarian x 26 cm Percuflex Plus stent on left. PATHOLOGY Stone fragments for analysis. COMPLICATIONS None. CONDITION Patient taken to recovery room awake and in stable condition. STATEMENT OF MEDICAL NECESSITY Patient is a 27-year-old white female who is one week status post C section delivery who is now being brought to the operating room for planned removal of malfunctioning encrusted ureteral stents on left as well as definitive treatment of her 1 cm distal stone. Her preoperative low-dose CT scan showed a good stent placement with no significant location in the 1 cm stone. She was also noted to have a 5 x 4 mm right mid pole stone as well. Specific risks and benefits of the procedure were again discussed with the patient, including failure to remove stents, stent fragmentation, damage to ureter with possible extravasation and/or scar formation with stricture and need for possible percutaneous nephrostomy tube placement and further treatments. DESCRIPTION OF OPERATION PERFORMED Patient was brought to the operating room, and after general anesthetic was obtained, she was placed in the dorsal lithotomy position and prepped and draped in usual sterile manner. Casket Assembler [employer] film was obtained, which showed good stent placement on the left. I could not 100% tell if she had a significant amount of encrustations on the distal end of her stents or along the course of the ureter. The original stent which was placed in March, the proximal end was down at the UPJ, the other one was in the upper pole calyx. This more recent stent was placed approximately 4-5 weeks ago. Anesthetic cystoscopy revealed stents emanating from the left ureteral orifice. The distal end of both stents were densely encrusted. However, the newer of the stents appeared less so than the prior one. At this point, a 6 Gibraltarian access catheter was advanced in the scope lumen, advanced easily up the right ureter to the renal pelvis. This was then used to place a 0.035 double floppy wire. The access catheter was removed, and then the wire was used to place an 8/10 dilating system, which advanced easily up the ureter. Left semirigid ureteroscopy was performed over the working wire. The original 1 cm distal stone was encountered approximately 5 cm above the ureteral orifice. It was surrounded by significant ureteral edema. The newer stent, which was placed approximately five weeks ago, appeared to have only minimal encrustations along the course. The ureteroscope was advanced up to the level of the vessels and then removed. At this point, the newer of the stents was grasped at the ureteral orifice and tubing removed under fluoroscopic imaging. The safety wire was left in placed during this procedure, and the stent was removed with minimal resistance. The stent was grasped from the bladder, where it was inspected on the back table and was intact. At this point, the ureteroscope was then reintroduced into the ureter and advanced to the level of the distal ureteral stone. The 200 micron laser fiber was then used to perform in situ laser lithotripsy of this distal stone on the long fragmentation settings. The stone was both dusted and fragmented into several smaller pieces At the conclusion of treatment, there were approximately five fragments ranging from 1-3 mm in size. These were individually grasped with the Jerome grasping forceps and removed, where they were dropped in the bladder. At this point, the scope was reintroduced. No significant fragments could be identified to the level of the vessels. At this point, the ureteroscope was removed leaving the safety wire in place. The original stent was then grasped at the ureteral orifice with the grasping forceps on the scope, and on fluoroscopic imaging was attempted to be removed. It advanced only approximately 2 cm down the ureter, where significant resistance was encountered. Therefore, the ureteroscope was then again reintroduced into the ureter, this time advanced above the level of the vessels to the proximal ureter. At this point, the proximal curl of the original stent could be identified, and it was densely encrusted with stone material. The laser fiber was reintroduced, and under direct vision, the laser fiber was used to remove the stones that were encrusted along this distal portion, taking care not to directly place the fiber onto the stent. Approximately 90% of the stone fragment was removed with this maneuver over the course of 20 minute time. At this point, gently pulling down on the stent revealed that the stent had straightened out under fluoroscopic imaging, and the stent was then removed with minimal resistance. The stent was removed from the bladder and inspected on the back table. Again, it was intact without other anomalies, but still with some encrustations on the distal and proximal end. At this point, the safety wire was back loaded into the cystoscope, and this was used to place a 6 Gibraltarian x 26 cm Percuflex Plus stent on the left side. The wire was removed. She was noted to have good curling in upper pole calyx by fluoroscopy and good curling int he bladder by direct vision. At this point, the rigid grasping forceps were used to remove 10-20 stone fragments in the bladder at the conclusion of the case. These were collected and sent for analysis. The patient's bladder was drained through the cystoscopic sheath. A B and O suppository was given per rectally at the conclusion of the case. She was awakened in the operating room and taken to the recovery area in stable condition. PLAN The plan will be to allow her to be discharged home on [place], Colace and Ditropan XL. We will plan to have her return to the operating room in approximately 10-14 days for stent removal with possible followup ureteroscopy on the left as well as extracorporeal shockwave lithotripsy of her stone on the right. SHELLEY
== END 2017-10-10 11:35 | disposition home or self-care (01) ==
LOC: OR 02:05
PROVIDERS: ATTEND Urology
DX: N20.2 Calculus of kidney with calculus of ureter (principal)
CPT/HCPCS: 36415; 52352; 52356; 74176; 74420; 81001; 82365; 85025; 87088; 88300; J1100; J1885; J2001; J2405; J2704; J3010; J3490; J7050; Q9966; J0690

== ENCOUNTER 2017-10-12 15:08 | Inpatient (IN) | payer MEDICAID ==
[2017-10-04 06:50] VITALS: Ht 167.6 cm; Wt 113.9 kg
[~2017-10-12] VITALS: Ht 167.6 cm; Wt 113.9 kg
[~2017-10-12 15:08] MED LIST changes: +DOCU-416 PO; +HYDR-4309 PO; +OXYB10TA21 PO
[2017-10-12] MEDS ORDERED: ONDANSETRON 4 MG/2 ML VIAL IVP ONE (15:25)
[2017-10-12] MEDS ORDERED: NS(*) 0.9% 1000 ML BAG 1,000 ML IV ONE ×3 (15:25→16:45)
[2017-10-12] MEDS ORDERED: MORPHINE 4 MG/ML SDV IVP ONE ×2 (15:45→16:45)
[2017-10-12 15:46] LABS: PLATELET COUNT, AUTOMATED 262 K/uL (150-450)
--- NOTE | 2017-10-12 15:48 | ER Report ---
History and Physical Time Seen By MD: 15:25 Hx. of Stated Complaint: PATIENT REPORTS THAT SHE HAD A LAST WEEK. SHE IS REPORTING SURGICAL SITE PAIN AND FEVER. ORAL TEMP WAS 101.0 HPI/ROS CHIEF COMPLAINT: Fever, abdominal pain HISTORY OF PRESENT ILLNESS: Patient is a 27-year-old female who presents the ED with complaint of fever and abdominal pain started 2 days ago. She states that she had a completed last week and had 2 stents placed in her right ureter 2 weeks ago. She states that she was doing quite well with this but uncertain or some pain yesterday and fever last night. She states that she took her temp last night noted that it was 105F. She did take some [place] with good pain and fever reduction. She continues to feel ill today. She has been having some nausea but denies any vomiting. She did notice a loose stool as well. Patient denies any hematuria, dysuria, increased urinary frequency. She states that she has noted a slight cough for the past few weeks. She denies any shortness of breath. She states that she does smoke and is trying to quit but was currently at a 2 pack per day. REVIEW OF SYSTEMS: Constitutional: The history of present illness. Eyes: No discharge. ENT: No sore throat. Cardiovascular: No chest pain, no palpitations. Respiratory: See history of present illness. Gastrointestinal: See history of present illness. Genitourinary: See history of present illness. Musculoskeletal: No back pain. Skin: No rashes. Neurological: No headache. Allergies: Coded Allergies: lamotrigine (Verified Allergy, Intermediate, RASH/HIVES, 07/22/17) cephalexin (Verified Allergy, Mild, RASH , 07/14/17) Home Meds Active Scripts Ibuprofen (IBUPROFEN) 800 Mg Tablet, 800 MG PO Q8H Y for PAIN, #30 TAB 0 Refills Prov:SHEILA LEZAMA MD 10/06/17 Reported Medications Oxybutynin Chloride (DITROPAN XL) 10 Mg Tab.er.24, 10 MG PO QDAY Y for URGENCY, #20 TAB 10/10/17 Docusate Sodium (COLACE) 100 Mg Capsule, 100 MG PO BID, #30 CAPSULE 10/10/17 Hydrocodone Bit/Acetaminophen (NORCO 5-325 TABLET) 1 Each Tablet, 1-2 EACH PO Q6H Y for PAIN, #30 TAB 4/23/18 Vits W-Ca,Fe,Fa(<1MG) ( VITAMINS) 1 Each Tablet, 1 EACH PO DAILY, TAB 04/13/17 Discontinued Reported Medications Acetaminophen (TYLENOL) 325 Mg Tablet, 650 MG PO PRN Y for PAIN, TAB 07/07/17 Discontinued Scripts Oxycodone/Acetaminophen (OXYCODONE/ACETAMINOPHEN 5MG/325 MG) 5 Mg/325 Mg Tab, 1- 2 TAB PO Q4H Y for PAIN for 30 Days, TAB 0 Refills Prov:SHEILA LEZAMA MD 10/06/17 Acetaminophen/Hydrocodone (HYDROCODON-ACETAMINOPH 7.5-325) 1 Each Ea, 1 EACH PO Q6H Y for PAIN, #30 EA 0 Refills Prov:SHEILA LEZAMA MD 09/02/17 Reviewed Nurses Notes: Yes Old Medical Records Reviewed: Yes Hx Smoking: Yes Smoking Status: Light Tobacco Smoker Exposure to Second Hand Smoke?: Yes Hx Substance Use Disorder: Yes Hx Alcohol Use: No Constitutional Vital Sign - Last 24 Hours 10/12/17 10/12/17 10/12/17 10/12/17 15:14 15:18 15:30 15:38 Temp 101.0 Pulse 124 B/P (MAP) 143/89 (107) 134/83 (100) Pulse Ox 93 10/12/17 10/12/17 10/12/17 10/12/17 15:45 16:08 16:15 16:30 Pulse 118 B/P (MAP) 141/77 (98) 132/77 (95) 131/77 (95) Pulse Ox 94 10/12/17 10/12/17 10/12/17 10/12/17 16:38 16:43 17:13 17:17 Pulse 128 150 118 B/P (MAP) 129/77 (94) Pulse Ox 95 95 94 10/12/17 17:21 Temp 103.1 Physical Exam General Appearance: The patient is alert, has no immediate need for airway protection and no signs of toxicity. Patient appears to be in no acute distress. Eyes: Pupils equal and round no pallor or injection. ENT, Mouth: Mucous membranes are moist. Respiratory: There are no retractions, lungs are clear to auscultation. Cardiovascular: Regular rate and rhythm. Gastrointestinal: There is abdominal tenderness and right lower left lower quadrant areas near her incision. There does not appear to be any erythema or exudate around this incision. She does have some guarding but no rebound tenderness. Normal bowel sounds in all 4 quadrants. Skin: Warm and dry, no rashes. Musculoskeletal: Neck is supple non tender. Extremities are nontender, nonswollen and have full range of motion. DIFFERENTIAL DIAGNOSIS: After history and physical exam differential diagnosis was considered for fever in adults including but not limited to pneumonia, urinary tract infection, viral syndrome, and influenza. Medical Decision Making Data Points Result Diagram: 10/12/17 1532 10/12/17 1532 Laboratory Hematology Test 10/12/17 15:17 10/12/17 15:32 10/12/17 15:54 10/12/17 16:24 Urine Color Yellow Urine Clarity Slightly-cloudy Urine pH 6.0 pH (4.8-9.5) Urine Specific [place] 1.019 Urine Protein 100 mg/dL (NEGATIVE) Urine Glucose (UA) Negative mg/dL (NEGATIVE) Urine Ketones Negative mg/dL (NEGATIVE) Urine Blood Moderate (NEGATIVE) Urine Nitrite Negative (NEGATIVE) Urine Bilirubin Negative (NEGATIVE) Urine Urobilinogen 2.0 mg/dL (0.2-1.9) Urine Leukocyte Esterase Large (NEGATIVE) Urine RBC 69 /HPF (0-2/HPF) Urine WBC 209 /HPF (0-5/HPF) Urine Squamous Epithelial Cells Many /LPF (</=FEW) Urine Amorphous Crystals Few /HPF Urine Bacteria Negative /HPF (NONE-FEW) Urine Mucus Few /HPF (NONE-FEW) Red Blood Count 4.63 M/uL (4.17-5.56) Mean Corpuscular Volume 84.3 fL (80.0-96.0) Mean Corpuscular Hemoglobin 29.1 pg (26.0-33.0) Mean Corpuscular Hemoglobin Concent 34.5 g/dL (32.0-36.0) Red Cell Distribution Width 14.4 % (11.5-14.5) Mean Platelet Volume 8.7 fL (7.2-11.1) Neutrophils (%) (Auto) 81.2 % (39.4-72.5) Lymphocytes (%) (Auto) 9.0 % (17.6-49.6) Monocytes (%) (Auto) 9.2 % (4.1-12.4) Eosinophils (%) (Auto) 0.0 % (0.4-6.7) Basophils (%) (Auto) 0.6 % (0.3-1.4) Nucleated RBC Relative Count (auto) 0.0 /100WBC Neutrophils # (Auto) 19.6 K/uL (2.0-7.4) Lymphocytes # (Auto) 2.2 K/uL (1.3-3.6) Monocytes # (Auto) 2.2 K/uL (0.3-1.0) Eosinophils # (Auto) 0.0 K/uL (0.0-0.5) Basophils # (Auto) 0.1 K/uL (0.0-0.1) Nucleated RBC Absolute Count (auto) 0.00 K/uL Peripheral Blood Smear Yes Y/N Sodium Level 134 mmol/L (137-145) Potassium Level 3.7 mmol/L (3.5-5.0) Chloride Level 98 mmol/L (98-107) Carbon Dioxide Level 24 mmol/L (22-31) Blood Urea Nitrogen 13 mg/dl (7-18) Creatinine 0.90 mg/dl (0.52-1.04) Glomerular Filtration Rate Calc > 60.0 Random Glucose 99 mg/dl (75-110) Calcium Level 9.0 mg/dl (8.4-10.2) Total Bilirubin 0.5 mg/dl (0.2-1.3) Aspartate Amino Transf (AST/SGOT) 14 U/L (0-35) Alanine Aminotransferase (ALT/SGPT) 19 U/L (0-56) Alkaline Phosphatase 80 U/L (0-126) C-Reactive Protein 24.6 mg/dl (<1.0) Total Protein 7.1 gm/dl (6.3-8.2) Albumin 3.2 g/dl (3.5-5.0) Lipase 51 U/L (23-300) Influenza Virus Type A (PCR) Negative (NEGATIVE) Influenza Virus Type B (PCR) Negative (NEGATIVE) Lactate 0.8 mmol/L (0.7-2.1) Chemistry Test 10/12/17 15:17 10/12/17 15:32 10/12/17 15:54 10/12/17 16:24 Urine Color Yellow Urine Clarity Slightly-cloudy Urine pH 6.0 pH (4.8-9.5) Urine Specific [place] 1.019 Urine Protein 100 mg/dL (NEGATIVE) Urine Glucose (UA) Negative mg/dL (NEGATIVE) Urine Ketones Negative mg/dL (NEGATIVE) Urine Blood Moderate (NEGATIVE) Urine Nitrite Negative (NEGATIVE) Urine Bilirubin Negative (NEGATIVE) Urine Urobilinogen 2.0 mg/dL (0.2-1.9) Urine Leukocyte Esterase Large (NEGATIVE) Urine RBC 69 /HPF (0-2/HPF) Urine WBC 209 /HPF (0-5/HPF) Urine Squamous Epithelial Cells Many /LPF (</=FEW) Urine Amorphous Crystals Few /HPF Urine Bacteria Negative /HPF (NONE-FEW) Urine Mucus Few /HPF (NONE-FEW) White Blood Count 24.2 k/uL (4.5-11.0) Red Blood Count 4.63 M/uL (4.17-5.56) Hemoglobin 13.5 g/dL (12.0-16.0) Hematocrit 39.0 % (34.0-47.0) Mean Corpuscular Volume 84.3 fL (80.0-96.0) Mean Corpuscular Hemoglobin 29.1 pg (26.0-33.0) Mean Corpuscular Hemoglobin Concent 34.5 g/dL (32.0-36.0) Red Cell Distribution Width 14.4 % (11.5-14.5) Platelet Count 262 K/uL (150-450) Mean Platelet Volume 8.7 fL (7.2-11.1) Neutrophils (%) (Auto) 81.2 % (39.4-72.5) Lymphocytes (%) (Auto) 9.0 % (17.6-49.6) Monocytes (%) (Auto) 9.2 % (4.1-12.4) Eosinophils (%) (Auto) 0.0 % (0.4-6.7) Basophils (%) (Auto) 0.6 % (0.3-1.4) Nucleated RBC Relative Count (auto) 0.0 /100WBC Neutrophils # (Auto) 19.6 K/uL (2.0-7.4) Lymphocytes # (Auto) 2.2 K/uL (1.3-3.6) Monocytes # (Auto) 2.2 K/uL (0.3-1.0) Eosinophils # (Auto) 0.0 K/uL (0.0-0.5) Basophils # (Auto) 0.1 K/uL (0.0-0.1) Nucleated RBC Absolute Count (auto) 0.00 K/uL Peripheral Blood Smear Yes Y/N Glomerular Filtration Rate Calc > 60.0 Calcium Level 9.0 mg/dl (8.4-10.2) Total Bilirubin 0.5 mg/dl (0.2-1.3) Aspartate Amino Transf (AST/SGOT) 14 U/L (0-35) Alanine Aminotransferase (ALT/SGPT) 19 U/L (0-56) Alkaline Phosphatase 80 U/L (0-126) C-Reactive Protein 24.6 mg/dl (<1.0) Total Protein 7.1 gm/dl (6.3-8.2) Albumin 3.2 g/dl (3.5-5.0) Lipase 51 U/L (23-300) Influenza Virus Type A (PCR) Negative (NEGATIVE) Influenza Virus Type B (PCR) Negative (NEGATIVE) Lactate 0.8 mmol/L (0.7-2.1) Urinalysis Test 10/12/17 15:17 Urine Color Yellow Urine Clarity Slightly-cloudy Urine pH 6.0 pH (4.8-9.5) Urine Specific [place] 1.019 Urine Protein 100 mg/dL (NEGATIVE) Urine Glucose (UA) Negative mg/dL (NEGATIVE) Urine Ketones Negative mg/dL (NEGATIVE) Urine Blood Moderate (NEGATIVE) Urine Nitrite Negative (NEGATIVE) Urine Bilirubin Negative (NEGATIVE) Urine Urobilinogen 2.0 mg/dL (0.2-1.9) Urine Leukocyte Esterase Large (NEGATIVE) Urine RBC 69 /HPF (0-2/HPF) Urine WBC 209 /HPF (0-5/HPF) Urine Squamous Epithelial Cells Many /LPF (</=FEW) Urine Amorphous Crystals Few /HPF Urine Bacteria Negative /HPF (NONE-FEW) Urine Mucus Few /HPF (NONE-FEW) ED Course/Re-evaluation ED Course Will obtain labs. Patient will be given 1 L normal saline bolus, 4 mg IV Zofran , 4 mg IV morphine. 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 Patient has been given 3 L normal saline and we'll start IV Zosyn 3.375 mg IV as well as another 4 mg IV morphine for pain relief. Did complete a digital pelvic exam to check for cervical motion tenderness. She does have some moderate pain with this cervix motion. Breast exam was also completed and she has some tenderness which she has noted with . There is no erythema or palpable abscess or mass. 10/12/2017 7:00:31 pm - patient was accepted by [facility] for admission. Decision to Disposition Date: Oct 12, 2017 Decision to Disposition Time: 19:00 Depart Departure Latest Vital Signs Vital Signs Date Time Temp Pulse Resp B/P (MAP) Pulse Ox O2 Delivery O2 Flow Rate FiO2 10/12/17 17:21 103.1 10/12/17 17:17 129/77 (94) 10/12/17 17:13 118 94 Impression: Primary Impression: Fever Additional Impressions: Pyelonephritis Status post Condition: Improved Disposition: Admitted from ER Referrals: SHEILA LEZAMA MD (PCP) FUEL ASSEMBLER/PA consult with MD: Verbally MD Consult Note: Dr. Patterson, ED [facility] Problem Qualifiers Primary Impression: Fever Fever type: post-procedural Qualified Codes: R50.82 - Postprocedural fever MEÑO GIPSON PA-C Oct 12, 2017 15:48
[2017-10-12] MEDS ORDERED: IOPAMIDOL 76% 75 ML INFUS BTL 0 ML ONE (16:36)
--- NOTE | 2017-10-12 16:40 | RADIOLOGY IMAGING REPORT ---
FACILITY: [facility] PATIENT NAME: Sarah Givens : 1990 MR: [id number] V: [id number] EXAM DATE: ORDERING PHYSICIAN: MEÑO GIPSON TECHNOLOG[place]: [place] [facility] [place] G[place] : 1990 Visit/Account:[id number] Date of Sevice: 10/12/2017 2 VIEWS CHEST INDICATION: Fever. Recent . COMPARISON: None available FINDINGS: Cardiomediastinal silhouette and pulmonary vessels within normal limits. There is no focal infiltrate or lobar consolidation. There is no pneumothorax or pleural effusion. No nodule. Upper abdomen is unremarkable. No acute bony abnormality. IMPRESSION: 1. No acute cardiopulmonary process. Report Dictated By: Dion Carreon at 10/12/2017 4:28 PM Report E-Signed By: Dion Carreon at 10/12/2017 4:35 PM WSN:[id number]
[2017-10-12] MEDS ORDERED: PIPERACILLIN/TAZO*3.375GM VIAL 3.375 GM in NS(*) 0.9% 100 ML ADDVANT BAG 100 ML IVPB ONE (16:45)
[2017-10-12] MEDS ORDERED: IOPAMIDOL 76% 75 ML INFUS BTL 75 ML ONE (17:09)
[2017-10-12] MEDS ORDERED: ACETAMINOPHEN 500 MG TAB PO ONE (17:25)
--- NOTE | 2017-10-12 17:45 | RADIOLOGY IMAGING REPORT ---
[place] [facility] [place] NAME: Sarah Givens : 1990 MR: [id number] V: [id number] EXAM DATE: ORDERING PHYSICIAN: MEÑO GIPSON TECHNOLOGIST: Location: [facility] Patient: Sarah Givens : 1990 Visit/Account:[id number] Date of Sevice: 10/12/2017 CT abdomen and pelvis with IV contrast Indication: Abdominal pain and fever. 3 days ago. Comparison: 10/10/2017.. Technique: Axial CT images were obtained through the abdomen and pelvis during injection of nonioni c iodinated intravenous contrast. Reformatted coronal and sagittal images were also obtained. One of the following dose optimization techniques was utilized in the performance of this exam: Autom ated exposure control; adjustment of the mA and/or kV according to the patient's size; or use of an i terative reconstruction technique. Specific details can be referenced in the facility's radiology C T exam operational policy. Contrast: 75 ml of Isovue-370 IV contrast. Findings: Lower lung dick: Continued mild bibasilar atelectasis, otherwise clear. Liver: No focal parenchymal abnormality of the liver. Biliary: Gallbladder appears unremarkable as well as the intra and extra hepatic biliary system. Pancreas: Normal appearance. Spleen: Normal appearance. Adrenal glands: Unremarkable. Kidneys / retroperitoneum: The left kidney again shows a bipigtail ureteral stent in place and unchan ged. The inferior aspect of the left renal collecting system does show a group of small stones measur ing up to 8 mm when measured together. This is not visualized previously. There is still mild left hy dronephrosis which is unchanged. Left kidney is minimally heterogeneous with mild perinephric strandi ng. This is increased from the previous examination. No discrete renal lesions. The right kidney show s a 2 mm stone collecting system without hydronephrosis and is unchanged. The right ureter is unremar kable. Bowel / peritoneum / mesenteries: The visualized gastrointestinal tract, including the appendix, with in normal limits. Stomach is unremarkable. No free air, free fluid, fluid collections or areas of inflammation. Lymph node assessment: No pathologic adenopathy identified. Pelvic structures: The uterus is enlarged showing a post appearance. Within the endometrium there is very small foci of increased attenuation and tiny foci of air which is unchanged from the p revious examination. No other focal abnormality. The remaining pelvic structures visualized within no rmal limits. The urinary bladder shows no other focal abnormality. Vessels: No significant atherosclerotic calcifications seen throughout a nonaneurysmal abdominal aort a and branches. Musculoskeletal / Body wall: No acute or aggressive osseous abnormality. There is minimal compression of the superior endplate of the T12 and L1 vertebral body. Unsure if this is due to compression or s ignal to Schmorl's nodes present this is unchanged from previous examination. The lower anterior abdominal wall again shows a small fluid collection measuring 6.5-1.5 cm with Houn sfield of 14 consistent with a seroma. This is similar to the previous examination. Postsurgical singh ges to the anterior abdominal wall without other sequelae. IMPRESSION: 1. uterus. The uterus again shows a tiny foci of air and small amount of increased attenua tion. This is unchanged from previous examination and could be residual from the . No other focal abnormality of the uterus. 2. The left kidney shows a stable bipigtail ureteral catheter in place. The left kidney however today does show mild heterogeneity and perinephric stranding which is not present previously. This is nons pecific but could be secondary to the continued mild hydronephrosis versus early pyelonephritis. Left kidney also shows several small stones in the inferior collecting system. 3. Stable nonobstructing right renal calculi. 4. Stable small seroma in the anterior abdominal wall. 5. Other sta le chronic findings as above. Report Dictated By: Dion Carreon at 10/12/2017 5:31 PM Report E-Signed By: Dion Carreon at 10/12/2017 5:42 PM WSN:[id number]
--- NOTE | 2017-10-12 19:21 | History & Physical ---
History of Present Illness Age of Patient: 27 Chief Complaint Abdominal pain and fever History of Present Illness Pt is a 27 y/o multigravida patient whom underwent repeat on 10/04/17 secondary to request from Urology because of worsening hydronephrosis that was unresponsive to Ureteral stents. Pt was also noted to have required significant amounts of Narcotic pain medication during . Today she presents to the Emergency department with a chief complaint of abdominal and back pain. She states that she also had a fever all night last night (10/11) that got as high as 105. Pt reports the pain is only on the lower aspects of her incision and only on the corners of her incision. Pt denies any redness of her skin or any purulent discharge from the incision. Pt does state that her fiance looked at the incision this morning and reports it did have a lot of crusty stuff along it. Denies any vaginal bleeding other then the normal lochia. Denies any abnormal vaginal discharge or foul smelling discharge. Denies any flank pain other then "the normal kidney stuff, I have during ." Reports that she is currently bottle feeding because her infant lost to much weight with breast milk and is trying to pump in order to keep the hope of . Pt denies any signs of infection of the breast. No sick contacts. No body aches or chills. Reports that she continues to take her pain medication and hasn't missed a dose (not concerning for withdrawal at this time). History Past Medical History: Significant for Obstructing ureteral stones during with multiple stents during . With Multiple Stent placements and lithotripsy Prior X 5 Allergies: Coded Allergies: lamotrigine (Verified Allergy, Intermediate, RASH/HIVES, 07/22/17) cephalexin (Verified Allergy, Mild, RASH , 07/14/17) Social History: +Tobacco use. Family History: FH: [place] (myocardial infarction) MOTHER, FH: bipolar disorder MOTHER, FH: diabetes mellitus FATHER FH: heart disease MOTHER, Kidney stone FATHER Substance abuse MOTHER, Med Rec Home Meds Active Scripts Ibuprofen (IBUPROFEN) 800 Mg Tablet, 800 MG PO Q8H Y for PAIN, #30 TAB 0 Refills Prov:SHEILA LEZAMA MD 10/06/17 Reported Medications Oxybutynin Chloride (DITROPAN XL) 10 Mg Tab.er.24, 10 MG PO QDAY Y for URGENCY, #20 TAB 10/10/17 Docusate Sodium (COLACE) 100 Mg Capsule, 100 MG PO BID, #30 CAPSULE 10/10/17 Hydrocodone Bit/Acetaminophen (NORCO 5-325 TABLET) 1 Each Tablet, 1-2 EACH PO Q6H Y for PAIN, #30 TAB 10/10/17 Vits W-Ca,Fe,Fa(<1MG) ( VITAMINS) 1 Each Tablet, 1 EACH PO DAILY, TAB 04/13/17 Discontinued Reported Medications Acetaminophen (TYLENOL) 325 Mg Tablet, 650 MG PO PRN Y for PAIN, TAB 07/07/17 Discontinued Scripts Oxycodone/Acetaminophen (OXYCODONE/ACETAMINOPHEN 5MG/325 MG) 5 Mg/325 Mg Tab, 1- 2 TAB PO Q4H Y for PAIN for 30 Days, TAB 0 Refills Prov:SHEILA LEZAMA MD 10/06/17 Acetaminophen/Hydrocodone (HYDROCODON-ACETAMINOPH 7.5-325) 1 Each Ea, 1 EACH PO Q6H Y for PAIN, #30 EA 0 Refills Prov:SHEILA LEZAMA MD 09/02/17 Review of Systems All Systems Reviewed/Normal: Yes, Except as Noted Constitutional: No Fever, No Weight Loss, No Weight Gain, No Chills, No Night Sweats, No Other Neurological: No Syncope, No Confusion, No Weakness, No Dizziness, No Slurred Speech, No Other Eyes: No Vision Change, No Loss of Vision, No Photophobia, No Other ENT: No Hearing Loss, No Sinus Congestion, No Sore Throat, No Ear Ache, No Tinnitus, No Other Cardiovascular: No Chest Pain, No Palpitations, No Orthostatic Hypotension, No Other Respiratory: No Shortness of Breath, No Cough, No Wheezing, No Other Gastrointestinal: Abdominal Pain (around incision) Genitourinary: Other (continued issues from urinary stents.), No Dysuria, No Hematuria, No Urinary Incontinence Musculoskeletal: Other (lower back pain), No Pain, No Sprain, No Strain, No Impaired Mobility Psychiatric: No Depression, No Anxiety, No Other Exam General Exam Vital Signs Vital Signs Date Time Temp Pulse Resp B/P (MAP) Pulse Ox O2 Delivery O2 Flow Rate FiO2 10/12/17 17:21 103.1 10/12/17 17:17 129/77 (94) 10/12/17 17:13 118 94 General Apperance: Alert/Awake/No Acute Distress Neuro: No Gross deficits Eyes: Normal Extraocular Movement & Vison, PERRLA ENT: Normal Cardiovascular: Regular Rate and Rhythm (tachycardic) Respiratory: No Respiratory Distress, Clear to Auscultation Abdomen: Soft, Non-Tender, Non-Distended, Incision (clean dry intact. 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 With fever being documented >101 will admit the patient and start Empiric IV antibiotics. Pt did receive one dose of Zosyn in the ER. Urine and blood cultures were collected. Will consult pharmacy to discuss gentamicin and clindamycin (with patients Creatinine may be problematic). Will also consider Meropenem 1 gm q hours. Will continue aggressive IV hydration. Pain control to include PO Percocet with IV morphine as needed. JAZ PARRISH DO Oct 12, 2017 19:21
[2017-10-12] MEDS ORDERED: ZOLPIDEM TARTRATE 10 MG TAB PO PRN (19:25)
[2017-10-12] MEDS ORDERED: ACETAMINOPHEN 325 MG TAB PO PRN (19:25)
[2017-10-12] MEDS ORDERED: PROMETHAZINE 25 MG/ML 1 ML AMP IVP PRN (19:25)
[2017-10-12] MEDS ORDERED: INFLUENZA VIRUS VAC 0.5 ML SYR IM ONE (19:25)
[2017-10-12] MEDS ORDERED: MORPHINE 2 MG/ML SYR IVP PRN (19:25)
[2017-10-12] MEDS ORDERED: ONDANSETRON 4 MG/2 ML VIAL IV PRN (19:25)
[2017-10-12] MEDS ORDERED: SIMETHICONE 80 MG CHEW CHEW PRN (19:25)
[2017-10-12] MEDS: MEROPENEM 1 GM VIAL 1 GM in NS(*) 0.9% 100 ML ADDVANT BAG 100 ML IV SCH (20:25)
[2017-10-12] MEDS: DLR(*) 1000 ML BAG 1,000 ML IV PRN (20:25)
[2017-10-12] MEDS: FAMOTIDINE 20 MG TAB PO SCH (20:57)
[2017-10-12] MEDS: DOCUSATE CALCIUM 240 MG CAP PO SCH (20:57)
[2017-10-12] MEDS: KETOROLAC 30 MG/ML VIAL IVP SCH (20:57)
[2017-10-12 21:00] VITALS: BP 115/63
[2017-10-12 22:18] VITALS: BP 105/57
[2017-10-13] MEDS: KETOROLAC 30 MG/ML VIAL IVP SCH ×2 (02:22→09:06)
[2017-10-13 02:26] VITALS: BP 153/84
[2017-10-13 03:05] VITALS: BP 124/60
[2017-10-13] MEDS: MEROPENEM 1 GM VIAL 1 GM in NS(*) 0.9% 100 ML ADDVANT BAG 100 ML IV SCH ×2 (04:02→11:10)
[2017-10-13] MEDS: DLR(*) 1000 ML BAG 1,000 ML IV PRN (04:02)
[2017-10-13 04:05] VITALS: BP 115/49
[2017-10-13 06:44] LABS: PLATELET COUNT, AUTOMATED 204 K/uL (150-450)
--- NOTE | 2017-10-13 09:05 | OB/GYN Progress Note ---
OB Subjective Progress Notes Subjective Pt reports feeling better this morning. States she did have some fevers overnight but feels completely different then she did yesterday. No nausea or vomiting overnight. Ambulatory to bathroom only. Tolerating regular diet. Pain improved overnight. baling machine tender along incision. Back still hurts. GI: NEG Nausea, NEG Vomiting, NEG Flatus, NEG Bowel Movement : Voiding Well, Vaginal Bleeding, Scant Pain: Mild, Tolerating PO Pain Meds, Using IV Pain Meds (for break through only ) Neurological: No Headache, No Other Eyes: No Visual Disturbances OB Objective Physical Exam Vital Signs Date Time Temp Pulse Resp B/P (MAP) Pulse Ox O2 Delivery O2 Flow Rate FiO2 10/13/17 04:05 99.0 63 13 115/49 (71) 92 Nasal Cannula 2.0 General Appearance: Alert/Awake/No Acute Distress Neurological: No Gross deficits Eyes: Normal Extraocular Movement & Vison, PERRLA ENT: Normal Neck: No Masses Cardiovascular: Normal Rhythm & Peripheral Pulses, Regular Rate and Rhythm Respiratory: No Respiratory Distress, Clear to Auscultation Abdomen: Soft, Non-Tender, Non-Distended Incision: Clean, Dry, Intact : Normal Musculoskeletal: No Weakness/Pain Extremities: No Cyanosis,Clubbing or Edema, Warm, Other (cva tenderness) Integumentary: Skin Intact without Lesions or Rash (breast exam was not performed by myself) Psychological: Alert & Oriented X3, Appropriate Mood & Affect Result Diagram: 10/13/1760510/13/17605 Assessment and Plan 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 Aranda was in room at the same time as myself and thought there was a good chance of this being Pyelonephritis. Will continue Meropenem 1 gm IV q 8 hours. Repeat CBC in the AM. Pt desires to go home secondary to a in the family. Urged her to stay until she was 24 hours afebrile on IV antibiotics. Will wait for urine and blood cultures to return tomorrow. JAZ PARRISH DO Oct 13, 2017 09:05
[2017-10-13] MEDS: FAMOTIDINE 20 MG TAB PO SCH (09:06)
[2017-10-13] MEDS: DOCUSATE CALCIUM 240 MG CAP PO SCH (09:06)
[2017-10-13 09:10] VITALS: BP 135/75
--- NOTE | 2017-10-13 12:52 | OB/GYN Discharge Summary ---
Discharge Summary Reason for Hosp/Final Diag: (1) Fever Status: Acute (2) Acute endomyometritis Status: Acute Hospital Course & Plan: Pt decided to leave against medical advice. Was told to stay until 24 hours afebrile. Only received 2 doses of meropenem prior to leaving. Was counseled that she could have sepsis which would cause her future problems including her early . Lates Vital Signs Vital Signs Date Time Temp Pulse Resp B/P (MAP) Pulse Ox O2 Delivery O2 Flow Rate FiO2 10/13/17 04:05 99.0 63 13 115/49 (71) 92 Nasal Cannula 2.0 Weight (Pounds): 251 Result Diagram: 10/13/1760510/13/17605 Condition: No Change Discharge: Home Home Meds Active Scripts Ibuprofen (IBUPROFEN) 800 Mg Tablet, 800 MG PO Q8H Y for PAIN, #30 TAB 0 Refills Prov:SHEILA LEZAMA MD 10/06/17 Reported Medications Oxybutynin Chloride (DITROPAN XL) 10 Mg Tab.er.24, 10 MG PO QDAY Y for URGENCY, #20 TAB 10/10/17 Docusate Sodium (COLACE) 100 Mg Capsule, 100 MG PO BID, #30 CAPSULE 10/10/17 Hydrocodone Bit/Acetaminophen (NORCO 5-325 TABLET) 1 Each Tablet, 1-2 EACH PO Q6H Y for PAIN, #30 TAB 10/10/17 Vits W-Ca,Fe,Fa(<1MG) ( VITAMINS) 1 Each Tablet, 1 EACH PO DAILY, TAB 04/13/17 Discontinued Reported Medications Acetaminophen (TYLENOL) 325 Mg Tablet, 650 MG PO PRN Y for PAIN, TAB 07/07/17 Discontinued Scripts Oxycodone/Acetaminophen (OXYCODONE/ACETAMINOPHEN 5MG/325 MG) 5 Mg/325 Mg Tab, 1- 2 TAB PO Q4H Y for PAIN for 30 Days, TAB 0 Refills Prov:SHEILA LEZAMA MD 10/06/17 Acetaminophen/Hydrocodone (HYDROCODON-ACETAMINOPH 7.5-325) 1 Each Ea, 1 EACH PO Q6H Y for PAIN, #30 EA 0 Refills Prov:SHEILA LEZAMA MD 09/02/17 JAZ PARRISH DO Oct 13, 2017 12:52
[2017-10-13] MEDS ORDERED: IBUPROFEN 800 MG TAB PO PRN (15:00)
--- NOTE | 2017-10-13 15:07 | CONSULTATION ---
EVENT DATE: October 13, 2017 REASON FOR CONSULTATION Fever status post and ureteroscopy. HISTORY OF PRESENT ILLNESS Patient is a 27-year-old white female who was admitted to the hospital on the with fever of 103 with elevated white count at 24. Patient states that she was doing well until the evening before when she began to experience fever with subjective chills and lower abdominal pains. She is status post left ureteroscopy with removal of encrusted stents and treatment of a distal ureteral stone on the . At that point, a urine culture was obtained which was contaminated. She is also status post a repeat on October 04. On evaluation in the Emergency Room, she was noted to have a fever of 103.1. Her vital signs were stable. Her CBC revealed an elevated white count to 24 with a left shift at 81.2%. Her chemistry panel was normal except for a slightly decreased sodium at 134, and a lactate was normal at 0.8. Her urinalysis revealed large leukocyte esterase, but negative nitrate. On microscopic analysis, she had 69 red blood cells and 209 white blood cells with many squamous epithelial cells and no bacteria noted. Chest x-ray was unremarkable. CT exam was performed which showed her left ureteral stent in good position. Her chronic dilation on the left side is from her indwelling stents in with no change. She was noted to have a few small remaining fragments in the left lower pole and did have some mild heterogeneity of the parenchyma with some mild perinephric stranding. The uterus, again, showed tiny foci of air with increased attenuation which was no change from her preoperative low-dose ESWL on the . She was admitted to the hospital and started on broad-spectrum antibiotics. This morning, the patient states she feels significantly better, but not 100%. Her white count has decreased to 19, and her creatinine remains normal. She did spike a fever of 102 at approximately 2:30 this morning. Her other vital signs remain stable. PAST MEDICAL HISTORY 1. Chronic back pain. 2. Kidney stones. 3. Bipolar depression. 4. Irritable bowel syndrome. 5. Chronic headaches. PAST SURGICAL HISTORY 1. Tonsillectomy. 2. Breast abscess with incision and drainage. 3. times four. 4. Kidney stones with ureteroscopy and stent placement. CURRENT MEDICINES 1. Ibuprofen. 2. Pepcid. 3. Colace. 4. Toradol. 5. Ambien. 6. Piperacillin and tazobactam. 7. Meropenem. ALLERGIES CEPHALEXIN. REVIEW OF SYSTEMS Patient denies shortness of breath, chest pains, gross hematuria, or flank pain. PHYSICAL EXAMINATION GENERAL: Patient is a mildly obese, white female in no acute distress. HEENT: Normocephalic, atraumatic. CHEST: Clear to auscultation bilaterally. CARDIOVASCULAR: Regular rate and rhythm. ABDOMEN: Soft, nontender. She has mild tenderness over site, but no evidence of rebound. BACK: Normal with mild left CVAT. EXTREMITIES: Without clubbing, cyanosis, or edema. NEUROLOGIC: Nonfocal. IMPRESSION A 27-year-old white female with a one-day history of fever, chills, and elevated white count consistent with infection. At this point, it is unclear whether she has an infection related to possible pyelonephritis after her ureteroscopy or endomyometritis. RECOMMENDATIONS I agree with aggressive IV fluids and broad-spectrum antibiotics pending her blood and urine culture results. If her urine culture is positive for greater than 100,000 bacteria, I would lean more toward a diagnosis of pyelonephritis with an expected clinical course of gradually decreasing temperature spikes over the next three days with a gradual decrease in her white blood count. If her urine cultures remain normal, will probably treat her parenterally for 14 days with antibiotics. We will then return her to the operating room for stent removal with followup stone treatment after she has been treated for her current episode. SHELLEY
== END 2017-10-13 12:00 | disposition left against medical advice (07) | DRG 776 ==
LOC: ER 15:13 → OB 18:48
PROVIDERS: ADMIT Student in an Organized Health Care Education/Training Program; ATTEND Student in an Organized Health Care Education/Training Program
DX: O86.12 Endometritis following delivery (principal); O86.21 Infection of kidney following delivery; F17.210 Nicotine dependence, cigarettes, uncomplicated; G89.29 Other chronic pain; F31.9 Bipolar disorder, unspecified; K58.0 Irritable bowel syndrome with diarrhea; Z96.0 Presence of urogenital implants; Z53.29 Procedure and treatment not carried out because of patient's decision for other reasons; Z88.8 Allergy status to other drugs, medicaments and biological substances
CPT/HCPCS: 36415; 71046; 74177; 81001; 82040; 82247; 82310; 82374; 82435; 82565; 82947; 83605; 83690; 84075; 84132; 84155; 84295; 84450; 84460; 84520; 85025; 86140; 87040; 87077; 87088; 87186; 87502; 99285; J1885; J2185; J2270; J2405; J2543; J7030; J7050; Q9967

== ENCOUNTER → 2017-10-31 | Outpatient (CLI) | payer MEDICAID ==
[2017-10-04 06:50] VITALS: BMI 42.0
== END ==
LOC: LAB 09:02
PROVIDERS: ATTEND Urology
DX: N20.0 Calculus of kidney (principal)
CPT/HCPCS: 81001; 87088

== ENCOUNTER 2017-11-03 00:44 | Day surgery (SDC) | payer MEDICAID ==
[2017-10-04 06:50] VITALS: Ht 167.6 cm; Wt 107.5 kg
--- NOTE | 2017-11-02 13:56 | HISTORY AND PHYSICAL ---
DATE OF ADMISSION: November 03, 2017 CHIEF COMPLAINT Kidney stones. HISTORY OF PRESENT ILLNESS The patient is a 27-year-old white female with long history of kidney stones who recently developed a 1 cm distal left ureteral stone while . She originally underwent stent placement, but was lost to followup, eventually presenting here with encrustation of her stent, which required several secondary stents alongside this during her . She was subsequently taking to the operating room on October 10, 2017, at which time both her stents were removed, and she underwent ureteroscopy with laser fragmentation of her distal 1 cm stone as well as fragmentation of her encrusted stent. She was left with a replacement stent in place, however, three days post procedure she developed fever, chills, and was noted to have what appeared to be an Enterococcus pyelonephritis. She has subsequently undergone treatment with Levaquin, and when seen in the urology clinic on October 26, 2017, was without complaint. Her followup x-ray after ureteroscopy was performed showed good stent placement. She did have two to three small fragments in the left lower pole with an aggregate dimension of 10 x 4 mm. She was also noted to have a small 3 x 2 mm stone in the right mid pole. Options were discussed, ans he has elected to undergo stent removal with extracorporeal shock wave lithotripsy of her lower pole stones on the left. PAST MEDICAL HISTORY 1. Chronic back pain. 2. Kidney stones. 3. Bipolar depression. 4. Irritable bowel syndrome. 5. Chronic headaches. PAST SURGICAL HISTORY 1. Tonsillectomy. 2. Breast abscess with incision and drainage. 3. C section times four. 4. Kidney stones with ureteroscopy and stent placement as per HPI. CURRENT MEDICATIONS 1. Ibuprofen. 2. Pepcid. 3. Colace. 4. Toradol. 5. Ambien. ALLERGIES CEPHALEXIN. REVIEW OF SYSTEMS Patient denies fever, chills, nausea, vomiting, gross hematuria, chest pain, productive cough, change in bowel habits or bleeding disorder. PHYSICAL EXAMINATION GENERAL: Patient is a well-developed, well-nourished white female in no acute distress. HEENT: Normocephalic, atraumatic. CHEST: Clear to auscultation bilaterally. CARDIOVASCULAR Regular rate and rhythm. ABDOMEN: Soft, nontender, no masses are palpated. GENITOURINARY: Deferred to the OR. EXTREMITY: Without clubbing, cyanosis or edema. NEUROLOGICAL: Nonfocal. IMPRESSION 27-year-old white female with a history of kidney stones, now with a left indwelling stent with a 4 x 10 mm aggregate stone collection in the left lower pole. PLAN We will perform anesthetic cystoscopy, stent removal and extracorporeal shockwave lithotripsy of her left lower pole stones. SHELLEY
[~2017-11-03] VITALS: Ht 167.6 cm; Wt 107.5 kg
[2017-11-03] MEDS ORDERED: LIDOCAINE MPF 1% 5 ML VIAL ONE (08:00)
[2017-11-03] MEDS ORDERED: PROPOFOL EMUL(*) 10MG/ML 20 ML 20 ML ONE (08:00)
[2017-11-03] MEDS ORDERED: ONDANSETRON 4 MG/2 ML VIAL ONE (08:00)
[2017-11-03] MEDS ORDERED: DEXAMETHASONE SOD PHOS 10MG/ML ONE (08:00)
[2017-11-03] MEDS ORDERED: fentaNYL CITR 100 MCG/2 ML AMP ONE ×3 (08:01→11:18)
[2017-11-03 09:26] VITALS: BP 118/67
[2017-11-03 09:28] LABS: PLATELET COUNT, AUTOMATED 298 K/uL (150-450)
[2017-11-03] MEDS: FAMOTIDINE 20 MG TAB PO ONE ×2 (09:37→09:41)
[2017-11-03] MEDS ORDERED: FAMOTIDINE(*) 20MG/50ML PREMIX 50 ML IVPB ONE (09:38)
[2017-11-03] MEDS ORDERED: KETAMINE HCL 200 MG/20 ML MDV ONE (09:58)
[2017-11-03] MEDS ORDERED: LEVOFLOXACIN/D5W*500 MG/100 ML 100 ML IVPB ONE (10:00)
[2017-11-03] MEDS ORDERED: NORMOSOL R SOLN(*) 1000 ML BAG 1,000 ML IV PRN (10:00)
[2017-11-03] MEDS ORDERED: LIDOCAINE/SOD BICARB 8.4% SYR ID ONE (10:00)
[2017-11-03] MEDS ORDERED: MIDAZOLAM 2 MG/2 ML VIAL IVP PRN (10:00)
[2017-11-03 10:02] LABS: INR 0.99
[2017-11-03] MEDS ORDERED: KETOROLAC 30 MG/ML VIAL ONE (10:47)
[2017-11-03] MEDS ORDERED: DOCU-416 PO (11:27)
[2017-11-03] MEDS ORDERED: HYDR-4309 PO (11:27)
[2017-11-03] MEDS ORDERED: LEVO-85 PO (11:28)
[2017-11-03] MEDS ORDERED: IBUP600T22 PO (11:29)
[2017-11-03] MEDS ORDERED: GENTAMICIN 80 MG/2 ML VIAL ONE ×2 (11:46)
[2017-11-03] MEDS ORDERED: APAP/HYDROCODONE 325/5 TAB ONE ×2 (11:47→11:49)
[2017-11-03 12:15] VITALS: BP 135/84
[2017-11-03 12:30] VITALS: BP 134/88
[2017-11-03 12:33] VITALS: BP 131/74
--- NOTE | 2017-11-03 15:37 | OPERATIVE REPORT 1 ---
EVENT DATE: November 03, 2017 SURGEON: Ricardo Aranda MD ANESTHESIOLOGIST: Hermilo Pearce MD ANESTHESIA: General anesthetic. PREOPERATIVE DIAGNOSES 1. Left lower pole renal calculi. 2. Left indwelling ureteral stent. POSTOPERATIVE DIAGNOSES 1. Left lower pole renal calculi. 2. Left indwelling ureteral stent. PROCEDURES PERFORMED 1. Left lower pole extracorporeal shock wave lithotripsy. 2. Anesthetic cystoscopy with grasping and removal of left internal double-J ureteral stent. ESTIMATED BLOOD LOSS 5 mL INTRAVENOUS FLUIDS Crystalloids. DRAINS None. COMPLICATIONS None. CONDITION Patient taken to recovery room awake, in stable condition. STATEMENT OF MEDICAL NECESSITY Patient is a 27-year-old white female with a history of kidney stones who recently had an encrustation of stents with a distal 1 cm stone approximately one month ago. She underwent ureteroscopy with fragmentation of her distal ureteral stone as well as fragmentation of encrusted stent with removal and replacement. Followup x-rays revealed a 4 x 9 mm area of stone fragments in the lower pole and good stent placement. She is now being brought to operating room for planned treatment of her lower pole stones and removal of her stent. DESCRIPTION OF OPERATION PERFORMED Patient was brought to the operating room. After general anesthetic was obtained, she was placed supine on the lithotripsy table. The lower pole stones on the left were placed in the lithotripsy crosshairs in two planes. Treatment was begun at power setting of 2 and gradually increased to a power setting of 3 over the course of the first 300 shocks. A three-minute pause was then performed, and treatment resumed. The power was gradually increased to a power level of 7 over the course of the first 1000 shocks. Intermittent two- plane fluoroscopy was used throughout treatment to ensure the crosshairs remained on the stones and stone fragment pile. After 2000 shocks, the power was increased to a level of 8 for 500 shocks and then to 8-1/2 for the last 500 shocks. She received a total of 3000 shocks to the left lower pole stone fragment pile, at the conclusion which no significant fragments could be identified. At this point, she was placed in the dorsal lithotomy position, prepped and draped in the usual sterile manner. Anesthetic cystoscopy was performed with the 21-English rigid sheath and 30-degree lens. She had a small amount of blood emanating from the left ureteral orifice next to the stent. The stent seemed to be in good position without encrustations. The stent was grasped at its distal end and gently removed intact. The patient's bladder was then drained through the cystoscopic sheath. She was awakened in the operating room and taken to the recovery area in stable condition. PLAN The plan will be to allow the patient to be discharged home today on [place], Colace, Motrin, and two days of Levaquin. She is to start the head-down protocol in one to two days. We will see her in Urology Clinic in approximately four to six weeks with a followup ultrasound to ensure no residual hydronephrosis and discuss further followup at that time. SHELLEY
== END 2017-11-03 11:55 | disposition home or self-care (01) ==
LOC: OR 00:44
PROVIDERS: ATTEND Urology
DX: N20.0 Calculus of kidney (principal); K58.9 Irritable bowel syndrome, unspecified; Z79.899 Other long term (current) drug therapy; F31.89 Other bipolar disorder; G89.4 Chronic pain syndrome; Z87.442 Personal history of urinary calculi
CPT/HCPCS: 36415; 50590; 52310; 81025; 85025; 85610; J1100; J1885; J1956; J2001; J2405; J2704; J3010; J3490; J1580